=== PATIENT | female | born 1945 | race Caucasian/White ===

== ENCOUNTER 2017-06-22 09:59 | Outpatient (RCR) | payer MEDICARE, MEDICAID, SELFPAY | END 2017-06-22 10:00 | disposition home or self-care (01) | LOC: PT 09:59 | PROVIDERS: Family Provider Family Medicine | DX: L03.115 Cellulitis of right lower limb (principal); L03.116 Cellulitis of left lower limb; I89.0 Lymphedema, not elsewhere classified | CPT/HCPCS: 97162 ==

== ENCOUNTER → 2017-08-03 10:18 | Outpatient (CLI) | payer MEDICARE, MEDICAID, SELFPAY ==
--- NOTE | 2017-08-03 10:21 | XR_ITS ---
XR foot wt bearing LT 3V HISTORY: ITS.REASON: Foot Pain ORDERING PHYSICIAN: Mara Pickard DPM PATIENT AGE: 71 years COMPARISON: FINDINGS: There is moderate to severe hallux valgus with first metatarsophalangeal angle of 37 degrees with osteoarthritic change of the first metatarsophalangeal joint and hypertrophic changes of the distal aspect of the first metatarsal. No fracture or dislocation. No lytic or blastic change. Lateral view is somewhat rotated but does suggest pes planus. IMPRESSION: Hallux valgus with osteoarthritis and bunion formation at the distal aspect of the first MTP joint with pes planus
--- NOTE | 2017-08-03 10:21 | XR_ITS ---
XR foot wt bearing RT 3V HISTORY: ITS.REASON: Foot Pain ORDERING PHYSICIAN: Mara Pickard DPM PATIENT AGE: 71 years COMPARISON: None FINDINGS: Mild hallux varus with first metatarsophalangeal angle of 33 degrees with osteoarthritic change of the first MTP joint and mild hypertrophic change of the distal aspect of the first metatarsal. Pes planus. Hypertrophic changes are present at the dorsal aspect of the talonavicular joint. No acute fracture or dislocation. IMPRESSION: Hallux valgus with osteoarthritis and bunion formation at the first MTP. Pes planus
== END ==
PROVIDERS: PCP Family Medicine; Visit Provider Podiatrist
DX: M79.671 Pain in right foot (principal); M79.672 Pain in left foot; E11.9 Type 2 diabetes mellitus without complications
CPT/HCPCS: 73630

== ENCOUNTER → 2017-08-09 13:48 | Outpatient (REF) | payer MEDICARE, MEDICAID, SELFPAY | LOC: LAB 13:48 | DX: L97.909 Non-pressure chronic ulcer of unspecified part of unspecified lower leg with unspecified severity (principal); E11.622 Type 2 diabetes mellitus with other skin ulcer | CPT/HCPCS: 87070; 87077; 87186; 87205 ==

== ENCOUNTER → 2017-08-13 13:21 | Outpatient (CLI) | payer MEDICARE, MEDICAID, SELFPAY ==
--- NOTE | 2017-08-13 13:22 | XR_ITS ---
XR foot wt bearing LT 3V HISTORY: Left foot pain ITS.REASON: Pain ORDERING PHYSICIAN: Mara Pickard DPM PATIENT AGE: 71 years COMPARISON: 08/03/2017 FINDINGS: Moderate hallux valgus with mild osteoarthritis of the first metatarsophalangeal joint. First metatarsophalangeal angle images 34 degrees not significant change with mild lateral subluxation of the proximal phalanx of the first toe. Mild pes planus. No fracture or dislocation. No lytic or blastic change. IMPRESSION: Overall no significant change hallux valgus with pes planus
--- NOTE | 2017-08-13 13:22 | XR_ITS ---
XR ankle wt bearing RT min 3V HISTORY: ITS.REASON: Pain ORDERING PHYSICIAN: Mara Pickard DPM PATIENT AGE: 71 years Comparison: None FINDINGS: No fracture or dislocation. No lytic or blastic change. There is normal mineralization.. The joint spaces are well-preserved. No significant degenerative/arthritic changes. No erosive changes evident. IMPRESSION: Negative ankle, no acute finding
--- NOTE | 2017-08-13 13:22 | XR_ITS ---
XR ankle wt bearing LT min 3V HISTORY: ITS.REASON: Pain ORDERING PHYSICIAN: Mara Pickard DPM PATIENT AGE: 71 years Comparison: None FINDINGS: No fracture or dislocation. No lytic or blastic change. There is normal mineralization.. The joint spaces are well-preserved. No significant degenerative/arthritic changes. No erosive changes evident. Prominent overlying soft tissues IMPRESSION: Negative ankle, no acute finding
--- NOTE | 2017-08-13 13:22 | XR_ITS ---
XR foot wt bearing RT 3V HISTORY: ITS.REASON: pain ORDERING PHYSICIAN: Mara Pickard DPM PATIENT AGE: 71 years COMPARISON: 08/03/2017 FINDINGS: Overall no change hallux valgus with mild osteoarthritic change first MTP joint. There is moderate pes planus. There are osteoarthritic changes of the talonavicular joint. No fracture or dislocation.. Diffuse soft tissue swelling. IMPRESSION: Overall no change hallux valgus with pes planus and osteoarthritic change of the talonavicular joint
== END ==
PROVIDERS: Visit Provider Podiatrist
DX: M76.821 Posterior tibial tendinitis, right leg (principal); E11.9 Type 2 diabetes mellitus without complications
CPT/HCPCS: 73610; 73630

== ENCOUNTER → 2017-08-17 11:01 | Outpatient (REF) | payer MEDICARE, MEDICAID, SELFPAY | LOC: LAB 11:01 | DX: E11.9 Type 2 diabetes mellitus without complications (principal); M76.821 Posterior tibial tendinitis, right leg | CPT/HCPCS: 87070; 87077; 87186; 87205 ==

== ENCOUNTER → 2017-08-27 13:34 | Outpatient (CLI) | payer MEDICARE, MEDICAID, SELFPAY ==
[2017-08-27 14:26] LABS: Basophils % 0.3 % (0.1-2.0); Eosinophils # 0.5 K/mm3 (0.0-0.4); Hematocrit 42.2 % (37.0-47.0); Hemoglobin 12.9 g/dL (12.2-16.2); Lymphocytes # 1.7 K/mm3 (0.7-4.5); Mean Corpuscular HGB Conc 30.6 g/dL (31.8-35.4); Mean Corpuscular Hemoglobin 27.9 pg (27.0-31.2); Monocytes # 0.6 K/mm3 (0.1-1.0); Monocytes % 6.4 % (1.7-9.3); Neutrophils # 6.1 K/mm3 (1.8-7.8); Neutrophils % 69.2 % (37.0-80.0); Platelet Count 330 K/mm3 (142-424); Red Blood Count 4.64 M/mm3 (4.20-5.40); Red Cell Distribution Width 15.8 % (11.5-17.5); White Blood Count 8.9 K/mm3 (4.8-10.8)
[2017-08-27 14:58] LABS: Hemoglobin A1C 6.2 % (0.0-7.0)
[2017-08-27 15:25] LABS: Alanine Aminotransferase 23 U/L (12-78); Albumin Level 3.6 gm/dL (3.4-5.0); Alkaline Phosphatase 95 U/L (46-116); Anion Gap 15.4 mEq/L (5-15); Aspartate Amino Transferase 21 U/L (15-37); Bilirubin,Total 0.3 mg/dL (0.2-1.0); Blood Urea Nitrogen 14 mg/dL (7-18); Calcium 9.2 mg/dL (8.5-10.1); Carbon Dioxide 26 mmol/L (21.0-32.0); Chloride 104 mmol/L (98-107); Chol/HDL Ratio 3.8 (1-3.5); Cholesterol 162 mg/dL (140-200); Creatinine,Serum 1.27 mg/dL (0.55-1.02); Estimated Glomerular Filt Rate 41 ml/min (>60); GFR (African American) 50 ML/MIN (>60); Globulin 3.7 gm/dl (1.3-3.2); Glucose 138 mg/dL (74-106); HDL Cholesterol 43 mg/dL (29-89); LDL Cholesterol 92 mg/dL (0-130); Potassium 4.4 mmoL/L (3.5-5.1); Sodium 141 mmol/L (136-145); Thyroid Stimulating Hormone 3.87 uIU/ml (0.358-3.740); Total Protein,Serum 7.3 gm/dL (6.4-8.2); Triglycerides 134 mg/dL (30-200); VLDL Cholesterol 27 mg/dL (0-40)
[2017-08-28 09:18] LABS: Creatinine, Urine 25.2 mg/dL (Not Estab.); Microalbumin, Urine <3.0 ug/mL (Not Estab.)
[2017-08-28 09:19] LABS: Vitamin D 25 Hydroxy 42.7 ng/mL (30.0-100.0)
== END ==
PROVIDERS: Visit Provider Nurse Practitioner Family
DX: E11.9 Type 2 diabetes mellitus without complications (principal); R53.83 Other fatigue; Z79.899 Other long term (current) drug therapy
CPT/HCPCS: 36415; 80053; 80061; 82043; 82570; 82652; 83036; 84443; 85025

== ENCOUNTER → 2017-11-06 12:14 | Outpatient (REF) | payer MEDICARE, MEDICAID, SELFPAY | LOC: LAB 12:14 | PROVIDERS: Visit Provider Nurse Practitioner Family | DX: L08.9 Local infection of the skin and subcutaneous tissue, unspecified (principal) | CPT/HCPCS: 87070; 87077; 87186; 87205 ==

== ENCOUNTER 2017-11-29 11:00 | Outpatient (RCR) | payer MEDICARE, MEDICAID, SELFPAY | END 2017-11-29 11:01 | disposition home or self-care (01) | LOC: PT 11:00 | PROVIDERS: Family Provider Family Medicine; PCP Family Medicine; Visit Provider Internal Medicine | DX: I89.0 Lymphedema, not elsewhere classified (principal) | CPT/HCPCS: 29580; 97140; 97163; 97164; 97597; 97760 ==

== ENCOUNTER → 2018-01-17 09:43 | Outpatient (POV) | payer MEDICARE, MEDICAID, SELFPAY | PROVIDERS: Visit Provider Podiatrist | DX: Z00.00 Encounter for general adult medical examination without abnormal findings (principal) ==

== ENCOUNTER → 2018-01-29 17:35 | Outpatient (CLI) | payer MEDICARE, MEDICAID, SELFPAY ==
[2018-01-29 18:51] LABS: Basophils % 0.4 % (0.1-2.0); Eosinophils # 0.3 K/mm3 (0.0-0.4); Eosinophils % 3.4 % (0.1-12.0); Hematocrit 43.3 % (37.0-47.0); Hemoglobin 13.9 g/dL (12.2-16.2); Lymphocytes # 1.7 K/mm3 (0.7-4.5); Lymphocytes % 20.9 % (10-50); Mean Corpuscular Hemoglobin 29.5 pg (27.0-31.2); Mean Corpuscular Volume 92.2 fl (81-99); Mean Platelet Volume 8.3 fl (7.4-10.4); Monocytes # 0.5 K/mm3 (0.1-1.0); Monocytes % 6.6 % (1.7-9.3); Neutrophils # 5.5 K/mm3 (1.8-7.8); Neutrophils % 68.7 % (37.0-80.0); Platelet Count 304 K/mm3 (142-424); Red Cell Distribution Width 15.3 % (11.5-17.5)
[2018-01-29 19:19] LABS: Alanine Aminotransferase 24 U/L (12-78); Albumin Level 3.9 gm/dL (3.4-5.0); Alkaline Phosphatase 110 U/L (46-116); Anion Gap 17.4 mEq/L (5-15); Aspartate Amino Transferase 13 U/L (15-37); Bilirubin,Total 0.2 mg/dL (0.2-1.0); Blood Urea Nitrogen 15 mg/dL (7-18); Calcium 9.5 mg/dL (8.5-10.1); Carbon Dioxide 24 mmol/L (21.0-32.0); Chloride 102 mmol/L (98-107); Creatinine,Serum 1.18 mg/dL (0.55-1.02); Estimated Glomerular Filt Rate 45 ml/min (>60); Free T4 (Free Thyroxine) 0.94 ng/dl (0.76-1.46); GFR (African American) 54 ML/MIN (>60); Globulin 4.1 gm/dl (1.3-3.2); Glucose 114 mg/dL (74-106); Potassium 4.4 mmoL/L (3.5-5.1); Sodium 139 mmol/L (136-145); Thyroid Stimulating Hormone 2.34 uIU/ml (0.358-3.740)
[2018-01-29 20:05] LABS: Hemoglobin A1C 6.5 % (0.0-7.0)
== END ==
PROVIDERS: Visit Provider Emergency Medicine
DX: I89.0 Lymphedema, not elsewhere classified (principal); E11.9 Type 2 diabetes mellitus without complications
CPT/HCPCS: 80053; 83036; 84439; 84443; 85025

== ENCOUNTER → 2018-03-12 14:11 | Outpatient (CLI) | payer MEDICARE, MEDICAID, SELFPAY | PROVIDERS: Visit Provider Nurse Practitioner Family | DX: N39.0 Urinary tract infection, site not specified (principal) | CPT/HCPCS: 87086 ==

== ENCOUNTER → 2018-03-29 16:56 | Outpatient (CLI) | payer MEDICARE, MEDICAID, SELFPAY ==
[2018-03-29 18:35] LABS: Basophils % 0.4 % (0.1-2.0); Eosinophils # 0.2 K/mm3 (0.0-0.4); Eosinophils % 2.7 % (0.1-12.0); Hematocrit 40.7 % (37.0-47.0); Hemoglobin 12.8 g/dL (12.2-16.2); Lymphocytes % 24.8 % (10-50); Mean Corpuscular HGB Conc 31.3 g/dL (31.8-35.4); Mean Corpuscular Hemoglobin 29.6 pg (27.0-31.2); Mean Corpuscular Volume 94.6 fl (81-99); Mean Platelet Volume 8.5 fl (7.4-10.4); Monocytes # 0.5 K/mm3 (0.1-1.0); Monocytes % 6.4 % (1.7-9.3); Neutrophils # 5.1 K/mm3 (1.8-7.8); Neutrophils % 65.6 % (37.0-80.0); Platelet Count 255 K/mm3 (142-424); Red Blood Count 4.31 M/mm3 (4.20-5.40); Red Cell Distribution Width 14.7 % (11.5-17.5); White Blood Count 7.8 K/mm3 (4.8-10.8)
[2018-03-29 19:03] LABS: Alanine Aminotransferase 23 U/L (12-78); Albumin Level 3.5 gm/dL (3.4-5.0); Albumin/Globulin Ratio 0.9 (1.1-1.8); Alkaline Phosphatase 98 U/L (46-116); Anion Gap 14.4 mEq/L (5-15); Aspartate Amino Transferase 16 U/L (15-37); Bilirubin,Total 0.3 mg/dL (0.2-1.0); Blood Urea Nitrogen 18 mg/dL (7-18); Calcium 9.4 mg/dL (8.5-10.1); Carbon Dioxide 25 mmol/L (21.0-32.0); Chloride 104 mmol/L (98-107); Chol/HDL Ratio 3.5 (1-3.5); Cholesterol 176 mg/dL (140-200); Creatinine,Serum 1.19 mg/dL (0.55-1.02); Estimated Glomerular Filt Rate 44 ml/min (>60); Free T4 (Free Thyroxine) 0.95 ng/dl (0.76-1.46); GFR (African American) 54 ML/MIN (>60); Globulin 3.7 gm/dl (1.3-3.2); Glucose 132 mg/dL (74-106); HDL Cholesterol 51 mg/dL (29-89); LDL Cholesterol 101 mg/dL (0-130); Potassium 4.4 mmoL/L (3.5-5.1); Sodium 139 mmol/L (136-145); Thyroid Stimulating Hormone 3.39 uIU/ml (0.358-3.740); Total Protein,Serum 7.2 gm/dL (6.4-8.2); Triglycerides 119 mg/dL (30-200); VLDL Cholesterol 24 mg/dL (0-40)
[2018-03-29 19:05] LABS: Hemoglobin A1C 6.5 % (0.0-7.0)
== END ==
LOC: LAB 16:58 → LAB.DROPOF 17:51
PROVIDERS: PCP Emergency Medicine; Visit Provider Emergency Medicine
DX: E11.9 Type 2 diabetes mellitus without complications (principal); Z79.84 Long term (current) use of oral hypoglycemic drugs
CPT/HCPCS: 80053; 80061; 83036; 84439; 84443; 85025

== ENCOUNTER → 2018-04-04 11:16 | Outpatient (CLI) | payer MEDICARE, MEDICAID, SELFPAY ==
[2018-04-04 11:22] LABS: Microscopic, Urine URINE MICROSCOPIC (MICROSCOPIC)
[2018-04-04 12:05] LABS: Basophils % 0.4 % (0.1-2.0); Eosinophils # 0.3 K/mm3 (0.0-0.4); Eosinophils % 2.9 % (0.1-12.0); Hematocrit 41.8 % (37.0-47.0); Hemoglobin 13.3 g/dL (12.2-16.2); Lymphocytes # 2.2 K/mm3 (0.7-4.5); Lymphocytes % 23.9 % (10-50); Mean Corpuscular HGB Conc 31.9 g/dL (31.8-35.4); Mean Corpuscular Hemoglobin 29.5 pg (27.0-31.2); Mean Corpuscular Volume 92.5 fl (81-99); Monocytes # 0.6 K/mm3 (0.1-1.0); Monocytes % 6.7 % (1.7-9.3); Neutrophils # 6.1 K/mm3 (1.8-7.8); Neutrophils % 66.1 % (37.0-80.0); Platelet Count 259 K/mm3 (142-424); Red Blood Count 4.52 M/mm3 (4.20-5.40); Red Cell Distribution Width 14.7 % (11.5-17.5); White Blood Count 9.2 K/mm3 (4.8-10.8)
[2018-04-04 12:47] LABS: Appearance,Urine CLEAR (Clear); Bilirubin,Urine Negative (Negative); Blood, Urine Negative (Negative); Color,Urine YELLOW (Yellow); Glucose,Urine (UA) Negative (Negative); Ketones,Urine Negative (Negative); Leukocyte Esterase,Urine 1+ (Negative); Nitrate,Urine Negative (Negative); Protein,Urine Negative (Negative); Urobilinogen,Urine 0.2 EU/dl (0.2)
[2018-04-04 13:01] LABS: Creatinine,Urine Random 45 mg/dL (20-320)
[2018-04-04 13:15] LABS: Bacteria,Urine Trace /lpf
[2018-04-04 13:25] LABS: Total Protein,Urine Random 5.3 mg/dL (0.0-11.9)
[2018-04-04 13:41] LABS: Albumin Level 3.7 gm/dL (3.4-5.0); Anion Gap 15.3 mEq/L (5-15); Blood Urea Nitrogen 13 mg/dL (7-18); Calcium 9.4 mg/dL (8.5-10.1); Carbon Dioxide 28 mmol/L (21.0-32.0); Chloride 101 mmol/L (98-107); Creatinine,Serum 1.26 mg/dL (0.55-1.02); Estimated Glomerular Filt Rate 42 ml/min (>60); GFR (African American) 50 ML/MIN (>60); Glucose 132 mg/dL (74-106); Phosphorous 3.5 mg/dL (2.4-4.9); Potassium 4.3 mmoL/L (3.5-5.1); Sodium 140 mmol/L (136-145)
[2018-04-06 11:59] LABS: Vitamin D 25 Hydroxy 57.6 ng/mL (30.0-100.0)
[2018-04-06 12:00] LABS: Parathyroid Hormone Intact 84 pg/mL (15-65)
== END ==
PROVIDERS: Visit Provider Internal Medicine Nephrology
DX: N18.3 Chronic kidney disease, stage 3 (moderate) (principal); R82.90 Unspecified abnormal findings in urine
CPT/HCPCS: 36415; 80069; 81001; 82570; 82652; 83970; 84155; 85025; 87086; 87088; 87186

== ENCOUNTER → 2018-04-11 15:38 | Outpatient (POV) | payer MEDICARE, MEDICAID, SELFPAY | PROVIDERS: Visit Provider Internal Medicine Nephrology | DX: Z00.00 Encounter for general adult medical examination without abnormal findings (principal) ==

== ENCOUNTER → 2018-04-30 14:42 | Outpatient (CLI) | payer MEDICARE, MEDICAID, SELFPAY | PROVIDERS: Visit Provider Nurse Practitioner Family | DX: R30.0 Dysuria (principal) | CPT/HCPCS: 87086 ==

== ENCOUNTER → 2018-05-20 11:43 | Outpatient (CLI) | payer MEDICARE, SELFPAY ==
--- NOTE | 2018-05-20 11:48 | XR_ITS ---
EXAM: XR thoracic spine 3V HISTORY: Back pain ITS.REASON: pain Comparison: None FINDINGS: There is mild lower thoracic curvature convex left with mild multilevel degenerative disc disease in the mid and lower thoracic spine. No acute fracture or dislocation. No lytic or blastic change. IMPRESSION: Mild degenerative changes, no acute finding
--- NOTE | 2018-05-20 11:48 | XR_ITS ---
EXAM: XR lumbar spine min 4V HISTORY: Back pain, low back pain ITS.REASON: pain ORDERING PHYSICIAN: Jodi Salazar PATIENT AGE: 72 years COMPARISON: None FINDINGS: There is mild lumbar curvature convex right with mild degenerative disc disease from T12 to L2 and L3-S1 there is mild retrolisthesis of L2 on L3 x 5 mm. No acute fracture or dislocation. No lytic or blastic change. The SI joints have an unremarkable appearance. There are surgical clips in right upper quadrant with a mild amount of colonic feces noted. IMPRESSION: Lumbar spondylosis with multilevel degenerative disc disease and mild scoliosis
== END ==
PROVIDERS: PCP Emergency Medicine; Visit Provider Nurse Practitioner Family
DX: M54.9 Dorsalgia, unspecified (principal); M54.6 Pain in thoracic spine; M54.5 Low back pain
CPT/HCPCS: 72072; 72110

== ENCOUNTER → 2018-06-11 12:00 | Outpatient (CLI) | payer MEDICARE, SELFPAY ==
--- NOTE | 2018-06-11 12:05 | XR_ITS ---
XR foot wt bearing LT 3V HISTORY: ITS.REASON: pain ORDERING PHYSICIAN: Mara Pickard DPM PATIENT AGE: 72 years COMPARISON: None FINDINGS: There is [id number] hallux valgus with mild osteoarthritis of the first MTP joint and bunion formation at the distal aspect of the first metatarsal. Pes planus also noted. No fracture or dislocation. No lytic or blastic change. IMPRESSION: Hallux valgus with pes planus
--- NOTE | 2018-06-11 12:05 | XR_ITS ---
XR foot wt bearing RT 3V HISTORY: ITS.REASON: pain ORDERING PHYSICIAN: Mara Pickard DPM PATIENT AGE: 72 years COMPARISON: None FINDINGS: No fracture or dislocation. No lytic or blastic change. There is normal mineralization.. Prominent dorsal osteophytes are present at the talonavicular joint with mild pes planus. No fracture or dislocation. There is a small calcaneal spur measuring 8 mm. IMPRESSION: Osteoarthritic changes at the talonavicular joint with mild pes planus
== END ==
PROVIDERS: PCP Emergency Medicine; Visit Provider Podiatrist
DX: M79.672 Pain in left foot (principal); M79.671 Pain in right foot
CPT/HCPCS: 73630

== ENCOUNTER → 2018-07-12 10:54 | Outpatient (CLI) | payer MEDICARE, MEDICAID, SELFPAY ==
--- NOTE | 2018-07-12 10:55 | CA_ITS ---
PROCEDURE: 2-D M-mode and color Doppler study INDICATIONS FOR THE TEST: Chest pain COPD Heart Murmur Tobacco Smoking Palpitations+ Fatigue+ Syncope Edema Hypertension+Diabetes Mellitus+ Rheumatic Fever SOB+ROTHMAN Obesity+Hyperlipidemia Family History HD+ Additional History Left leg numbness, ABN EKG PATIENT INFORMATION HEIGHT: 60 WEIGHT: 256 GENDER: Female B/P: 139/76 2-D/M-MODE INTERPRETATION: 2-D MEASUREMENTS OBSERVED VALUES IN CMS Right Ventricular Dimension (RVDd) 2.4 Interventricular Septum (Thickness)(IVsd) 0.9 Left Ventricular Internal Dimensions(LVIDd) 4.6 Left Ventricular Posterior Wall (Thickness)(LVPWd) 0.9 Aortic Root 2.8 Aortic Cusp Separation 2.0 Left Atrial Dimensions (LAD) 3.6 2D 1. Left atrium is mildly enlarged, left ventricle is normal size, mild concentric left ventricular hypertrophy, visually estimated ejection fraction 55% with no regional wall motion abnormality. 2. The right atrium and right ventricle are relatively normal size and function. 3. The aortic valve is minimally thickened and fibrosed. 4. The mitral and tricuspid valvular grossly normal. 5. Pulmonic valve is poorly visualized. 6. No significant pericardial effusion noted. DOPPLER INTERROGATION: Doppler interrogation of the aortic, mitral and tricuspid valvular presence of mild mitral and tricuspid regurgitation, tricuspid regurgitation jet velocity is inadequate for calculation of the right ventricular systolic pressure, grade 1 diastolic dysfunction seen without tissue Doppler evidence of raised left atrial pressure. CONCLUSION: 1. Mildly enlarged left atrium, normal left ventricular size, mild concentric left ventricular hypertrophy, visually estimated ejection fraction 55% with no regional wall motion abnormality, grade 1 diastolic dysfunction seen without tissue Doppler evidence of raised left atrial pressure. 2. Mild mitral and tricuspid regurgitation 3. No significant pericardial effusion noted.
== END ==
PROVIDERS: PCP Emergency Medicine; Visit Provider Urology
DX: E11.9 Type 2 diabetes mellitus without complications (principal); E66.01 Morbid (severe) obesity due to excess calories; E78.2 Mixed hyperlipidemia; I10 Essential (primary) hypertension; R06.00 Dyspnea, unspecified; R06.01 Orthopnea; R06.81 Apnea, not elsewhere classified; R06.83 Snoring; R53.83 Other fatigue; R60.0 Localized edema; R94.31 Abnormal electrocardiogram [ECG] [EKG]; Z68.43 Body mass index [BMI] 50.0-59.9, adult; Z79.84 Long term (current) use of oral hypoglycemic drugs
CPT/HCPCS: 93306

== ENCOUNTER → 2018-08-26 10:16 | Outpatient (CLI) | payer MEDICARE, MEDICAID, SELFPAY ==
--- NOTE | 2018-08-26 10:29 | MM_ITS ---
MM Dig screening mamm BI w/CAD CAD Screening COMPARISON: Digital mammograms with CAD 06/01/2016 INDICATION: There is a history of breast cancer patient's sister diagnosed after menopause in patient's niece diagnosed before menopause TECHNIQUE: Standard CC and MLO images were obtained. R2 CAD reviewed. FINDINGS: Moderate diffuse fibroglandular densities are seen in the subareolar regions and central portions of both breasts. There are multiple scattered benign-appearing microcalcifications in each breast. There is arterial calcification noted bilaterally as well. There is no new or suspicious lesion in either breast and there are no suspicious microcalcifications. IMPRESSION: Stable exam with no suspicious lesion seen BI-RADS Category: 2 Benign Finding(s) RECOMMENDED FOLLOW-UP: 1YR - 1 YEAR FOLLOW-UP (A letter has been sent to the patient regarding results of the study.)
== END ==
PROVIDERS: PCP Emergency Medicine; Visit Provider Emergency Medicine
DX: Z12.31 Encounter for screening mammogram for malignant neoplasm of breast (principal)
CPT/HCPCS: 77067

== ENCOUNTER → 2018-10-07 13:54 | Outpatient (CLI) | payer MEDICARE, MEDICAID, SELFPAY ==
[2018-10-07 15:47] LABS: Amphetamine/Metha Screen,Urine Negative ng/mL (<1000); Barbiturates Screen,Urine Negative ng/mL (<200); Benzodiazepines Screen,Urine Negative ng/mL (<200); Cannabinoid Screen,Urine Negative ng/mL (<50); Cocaine Screen,Urine Negative ng/mL (<300); Methadone Screen,Urine Negative ng/mL (<300); Opiate Screen,Urine Positive ng/mL (<300); Phencyclidine Screen,Urine Negative ng/mL (<25)
== END ==
PROVIDERS: Visit Provider Emergency Medicine
DX: M51.36 Other intervertebral disc degeneration, lumbar region (principal)
CPT/HCPCS: 80305

== ENCOUNTER → 2018-10-14 08:13 | Outpatient (CLI) | payer MEDICARE, MEDICAID, SELFPAY ==
--- NOTE | 2018-10-14 08:19 | US_ITS ---
US abdomen complete HISTORY: Abdominal pain ITS.REASON: stomach pain ORDERING PHYSICIAN: Fito Arambula MD PATIENT AGE: 72 years COMPARISON: None FINDINGS: PANCREAS:Unremarkable. No obvious mass or abnormal fluid collection. No ductal dilatation LIVER:Fatty liver. No liver lesions demonstrated. Study is somewhat limited secondary to patient's body habitus. There is appropriate direction of blood flow within a nondilated portal vein. Common bile duct is prominent at 8 mm and could be related to physiologic changes from prior cholecystectomy. RIGHT KIDNEY:Unremarkable. Normal size and echogenicity. No hydronephrosis LEFT KIDNEY:Unremarkable. No hydronephrosis. Normal size and echogenicity. GALLBLADDER:Prior cholecystectomy AORTA:No evidence of aneurysmal dilatation. SPLEEN:Unremarkable. Normal size and echogenicity ASCITES:None demonstrated. IMPRESSION: 1. Status post cholecystectomy with mild prominence of the common bile duct at 8 mm. 2. Fatty liver 3. Somewhat limited study secondary to patient's body habitus
== END ==
PROVIDERS: PCP Emergency Medicine; Visit Provider Emergency Medicine
DX: R10.9 Unspecified abdominal pain (principal)
CPT/HCPCS: 76700

== ENCOUNTER → 2018-11-20 12:41 | Outpatient (CLI) | payer MEDICARE, MEDICAID, SELFPAY ==
--- NOTE | 2018-11-20 12:43 | MR_ITS ---
PROCEDURE: MR LUMBAR SPINE WO CON CLINICAL INDICATION: back pain Low back pain, bilateral leg pain COMPARISON: [id number] XR lumbar spine min 4V from 05/20/2018 [id number] XR thoracic spine 3V from 05/20/2018 TECHNIQUE: Standard multiplanar multiecho sequences are performed without contrast. 3-D MIP and myelographic images are also rendered and reviewed FINDINGS: Review is performed of the previous thoracic spine and lumbar spine films. 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 The there is mild lumbar scoliosis convex right with a counter clockwise rotary component with multilevel degenerative disc disease. The spinal cord ends at the L1 level. T10-T11: Degenerate disc disease. T11-T12: Mild degenerative changes. T12-L1: Mild retrolisthesis of T12 of 2-3 mm with mild disc desiccation. L1-L2: Mild degenerative disc disease with minimal bulging disc. There is a small left paracentral disc protrusion causing left lateral recess and foraminal narrowing. There is concentric bulging of the disc in the left foraminal and lateral region with moderate to severe left-sided foraminal narrowing. There is minimal retrolisthesis of L1 of 2 mm. Facet and ligamentum hypertrophy are present contributing to the foraminal narrowing L2-L3: Degenerate disc disease with bulging disc along with facet ligamentum hypertrophy with moderate to severe left foraminal narrowing and moderate right foraminal narrowing. L3-L4: Degenerate disc disease with bulging disc with facet and ligamentum hypertrophy with moderate to severe right lateral recess and moderate left lateral recess narrowing along with moderate to severe right foraminal narrowing and moderate left foraminal narrowing. Borderline canal stenosis. L4-5: Degenerate disc disease with bulging disc with moderate facet ligamentum hypertrophy with severe right foraminal narrowing and moderate left foraminal narrowing. Borderline canal stenosis. L5-S1: Unremarkable No acute fracture. No extruded herniated discs. IMPRESSION: Abnormal MRI of the lumbar spine with dextro scoliosis with rotary component with multilevel lumbar spondylosis with bulging disc, degenerative disc disease, facet and ligamentum hypertrophy with varying levels of foraminal and lateral recess narrowing as well as borderline canal stenosis. Please see above for detailed description at each level Dictated by: Jonny Mcgowan MD 11/22/2018 09:29 Electronically signed by Jonny Mcgowan MD in [place] 11/22/2018 09:29
== END ==
PROVIDERS: PCP Emergency Medicine; Visit Provider Emergency Medicine
DX: M54.9 Dorsalgia, unspecified (principal); M54.5 Low back pain
CPT/HCPCS: 72148; 76376

== ENCOUNTER 2018-11-29 10:00 | Outpatient (RCR) | payer MEDICARE, MEDICAID, SELFPAY ==
--- NOTE | 2018-11-19 09:28 | HMH.PTOPWND ---
Rehab Outpt Wound Evaluation Rehab OP Wound Evaluation Start: 11/19/18 09:23 Freq: Status: Active Protocol: Document 11/19/18 09:23 MELITON (Rec: 11/19/18 09:28 PHORULI [id number]) Electronically Signed By Ang Nichols, PT 11/19/18 09:23 Subjective/History History History Pt is 72 yowf who presents with B LE edema for years, this episode increased x 2-3 mos worse in the left LE. Pt is well known to this clinic as she has significant hx of CVI with edema in ele LE. She currently c/o no pain, but B LE tenderness to palpation. SHe has one open sore currently on the anterior left mohr. She has hx of HTN, DM- II, CVI, HL, CKD. She reports she has not been wearing her compression garments at home. Lymphedema Eval Classification of Lymphedema Secondary Lymphedema Yes Stemmer's sign Stemmer's Sign no Stage of Lymphedema Lymphedema stages Stage II (Pitting edema, increased fibrosis w/ decreased pitting) Skin Changes Dry Skin Yes Skin Folds Yes Hyperkeratosis Yes Papillomatosis Yes Redness Yes Blisters Yes Wounds Yes Brittle Uneven Nails Yes Discoloration of Skin Yes Other Changes Yes Affected Extremities Areas Affected by Lymphedema/Edema Right Lower Extremity,Left Lower Extremity Manual Lymphatic Drainage Treatment Area MLD Treatment Area Right Lower Extremity,Left Lower Extremity Wound Problems/Impairments Impairments Problems/Impairmments Palpation Tenderness,Impaired Gait Pattern,Impaired Walking, Impaired Standing,Impaired Recreational Activities, Increased Edema,Lymphedema Present,Wound Care Needs, Subjective C/O Pain,Impaired Self Care/Self Management Prognosis Rehab Potential Fair Clinical Impression Consistent with Diagnosis Yes Short Term Goals Number of Weeks 4 Decreased Palpation Tenderness Yes: to min Patient to Understand Lymphedema Yes Blas
== END 2018-11-29 10:05 | disposition home or self-care (01) ==
LOC: PT 10:00
PROVIDERS: PCP Emergency Medicine; Visit Provider Emergency Medicine
DX: I89.0 Lymphedema, not elsewhere classified (principal); R60.0 Localized edema
CPT/HCPCS: 97140; 97162

== ENCOUNTER → 2018-11-29 11:03 | Outpatient (CLI) | payer MEDICARE, MEDICAID, SELFPAY ==
--- NOTE | 2018-11-29 11:16 | XR_ITS ---
PROCEDURE: XR FOOT WT BEARING RT 3V CLINICAL INDICATION: pain COMPARISON: [id number] XR foot wt bearing LT 3V from 08/13/2017 [id number] XR foot wt bearing RT 3V from 08/13/2017 [id number] XR foot wt bearing LT 3V from 06/11/2018 [id number] XR foot wt bearing RT 3V from 06/11/2018 FINDINGS: Hallux valgus which is slightly worse compared to the previous exam. Osteoarthritis of the 1st metatarsophalangeal joint. Osteoarthritic changes of the talonavicular joint and calcaneocuboid joint which also appears slightly worse. Bony hypertrophic changes are present involving the medial aspect of the navicular. There is pes planus. There are bony hypertrophic changes along the dorsal aspect of the talonavicular joint. IMPRESSION: Hallux valgus with worsening osteoarthritis and slight worsening of pes planus Dictated by: Jonny Mcgowan MD 11/29/2018 16:48 Electronically signed by Jonny Mcgowan MD in [place] 11/29/2018 16:48
== END ==
PROVIDERS: PCP Emergency Medicine; Visit Provider Podiatrist
DX: M79.671 Pain in right foot (principal)
CPT/HCPCS: 73630

== ENCOUNTER → 2018-12-05 17:56 | Outpatient (CLI) | payer MEDICARE, MEDICAID, SELFPAY | PROVIDERS: Visit Provider Nurse Practitioner Family | DX: N39.0 Urinary tract infection, site not specified (principal) | CPT/HCPCS: 87086; 87088; 87186 ==

== ENCOUNTER → 2019-01-03 10:37 | Outpatient (CLI) | payer MEDICARE, MEDICAID, SELFPAY ==
[2019-01-03 10:40] LABS: Microscopic, Urine URINE MICROSCOPIC (MICROSCOPIC)
[2019-01-03 11:10] LABS: Appearance,Urine CLEAR (Clear); Bilirubin,Urine Negative (Negative); Blood, Urine TRACE-I (Negative); Color,Urine YELLOW (Yellow); Glucose,Urine (UA) Negative (Negative); Ketones,Urine Negative (Negative); Leukocyte Esterase,Urine 2+ (Negative); Nitrate,Urine Negative (Negative); Protein,Urine Negative (Negative); Specific Gravity, Urine 1.015 (1.005-1.030); Urobilinogen,Urine 0.2 EU/dl (0.2)
[2019-01-03 11:20] LABS: WBC,Urine 20-50 #/hpf (0-3)
[2019-01-03 11:21] LABS: Bacteria,Urine 3+ /lpf; Mucus,Urine 1+ /lpf
[2019-01-03 11:51] LABS: Albumin Level 3.8 gm/dL (3.4-5.0); Anion Gap 11.6 mEq/L (5-15); Blood Urea Nitrogen 16 mg/dL (7-18); Calcium 9.7 mg/dL (8.5-10.1); Carbon Dioxide 30 mmol/L (21.0-32.0); Chloride 101 mmol/L (98-107); Creatinine,Serum 1.15 mg/dL (0.55-1.02); Estimated Glomerular Filt Rate 46 ml/min (>60); GFR (African American) 56 ML/MIN (>60); Glucose 100 mg/dL (74-106); Phosphorous 3.6 mg/dL (2.4-4.9); Potassium 4.6 mmoL/L (3.5-5.1); Sodium 138 mmol/L (136-145)
[2019-01-03 14:43] LABS: Basophils # 0.1 K/mm3 (0-0.2); Basophils % 0.6 % (0.1-2.0); Eosinophils # 0.3 K/mm3 (0.0-0.4); Eosinophils % 3.9 % (0.1-12.0); Hematocrit 42.7 % (37.0-47.0); Hemoglobin 13.6 g/dL (12.2-16.2); Lymphocytes # 1.7 K/mm3 (0.7-4.5); Lymphocytes % 19.9 % (10-50); Mean Corpuscular HGB Conc 31.7 g/dL (31.8-35.4); Mean Corpuscular Hemoglobin 30.2 pg (27.0-31.2); Mean Corpuscular Volume 95.3 fl (81-99); Mean Platelet Volume 8.7 fl (7.4-10.4); Monocytes # 0.6 K/mm3 (0.1-1.0); Monocytes % 7.2 % (1.7-9.3); Neutrophils # 5.8 K/mm3 (1.8-7.8); Neutrophils % 68.5 % (37.0-80.0); Platelet Count 304 K/mm3 (142-424); Red Blood Count 4.48 M/mm3 (4.20-5.40); Red Cell Distribution Width 14.6 % (11.5-17.5); White Blood Count 8.5 K/mm3 (4.8-10.8)
[2019-01-03 16:05] LABS: Creatinine,Urine Random 112 mg/dL (20-320); Total Protein,Urine Random 26.8 mg/dL (0.0-11.9)
== END ==
PROVIDERS: Visit Provider Internal Medicine Nephrology
DX: N18.3 Chronic kidney disease, stage 3 (moderate) (principal); R82.90 Unspecified abnormal findings in urine
CPT/HCPCS: 36415; 80069; 81001; 82570; 84155; 85025; 87086

== ENCOUNTER → 2019-01-09 11:58 | Outpatient (POV) | payer MEDICARE, MEDICAID, SELFPAY | PROVIDERS: Visit Provider Internal Medicine Nephrology | DX: Z00.00 Encounter for general adult medical examination without abnormal findings (principal) ==

== ENCOUNTER → 2019-02-13 09:30 | Outpatient (CLI) | payer MEDICARE, MEDICAID, SELFPAY ==
--- NOTE | 2019-02-13 09:32 | FL_ITS ---
PROCEDURE: FL BARIUM SWALLOW CLINICAL INDICATION: dysphagia COMPARISON: No exams were available for comparison TECHNIQUE: In the upright position the patient was observed to swallow barium in both the AP and lateral view. The cervical esophagus was examined under fluoroscopy with images obtained. The patient was then placed prone in the right anterior oblique position and was observed to swallow barium with Valsalva technique . FLUOROSCOPY TIME : 51 seconds FINDINGS: There was no evidence of aspiration. There was normal peristalsis. No filling defects or mucosal abnormalities. No masses or strictures. No hiatal hernia. IMPRESSION: Negative barium swallow. Dictated by: Jonny Mcgowan MD 02/13/2019 16:17 Electronically signed by Jonny Mcgowan MD in [place] 02/13/2019 16:17
== END ==
PROVIDERS: PCP Emergency Medicine; Visit Provider Emergency Medicine
DX: R13.10 Dysphagia, unspecified (principal)
CPT/HCPCS: 74220

== ENCOUNTER → 2019-02-24 13:36 | Outpatient (CLI) | payer MEDICARE, MEDICAID, SELFPAY ==
[2019-02-24 14:46] LABS: Amphetamine/Metha Screen,Urine Negative ng/mL (<1000); Barbiturates Screen,Urine Negative ng/mL (<200); Benzodiazepines Screen,Urine Negative ng/mL (<200); Cannabinoid Screen,Urine Negative ng/mL (<50); Cocaine Screen,Urine Negative ng/mL (<300); Methadone Screen,Urine Negative ng/mL (<300); Opiate Screen,Urine Positive ng/mL (<300); Phencyclidine Screen,Urine Negative ng/mL (<25)
== END ==
PROVIDERS: Visit Provider Emergency Medicine
DX: M54.16 Radiculopathy, lumbar region (principal)
CPT/HCPCS: 80305

== ENCOUNTER → 2019-04-25 14:38 | Outpatient (CLI) | payer MEDICARE, MEDICAID, SELFPAY ==
[2019-04-25 20:00] LABS: Amphetamine/Metha Screen,Urine Negative ng/ml (<1000)
[2019-04-25 20:01] LABS: Barbiturates Screen,Urine Negative ng/ml (<200)
[2019-04-25 20:02] LABS: Benzodiazepines Screen,Urine Negative ng/ml (<200); Cannabinoid Screen,Urine Negative ng/ml (<50)
[2019-04-25 20:03] LABS: Cocaine Screen,Urine Negative ng/ml (<300)
[2019-04-25 20:04] LABS: Methadone Screen,Urine Negative ng/ml (<300); Phencyclidine Screen,Urine Negative ng/ml (<25)
[2019-04-25 20:06] LABS: Opiate Screen,Urine Negative ng/ml (<300)
== END ==
PROVIDERS: Visit Provider Emergency Medicine
DX: M54.16 Radiculopathy, lumbar region (principal)
CPT/HCPCS: 80305

== ENCOUNTER → 2019-08-18 15:41 | Outpatient (CLI) | payer MEDICARE, MEDICAID, SELFPAY ==
[2019-08-18 16:01] LABS: Basophils % 0.3 % (0.1-2.0); Eosinophils # 0.3 K/mm3 (0.0-0.4); Eosinophils % 3.4 % (0.1-12.0); Hematocrit 40.7 % (37.0-47.0); Hemoglobin 13.1 g/dL (12.2-16.2); Lymphocytes # 1.8 K/mm3 (0.7-4.5); Lymphocytes % 21.1 % (10-50); Mean Corpuscular HGB Conc 32.2 g/dL (31.8-35.4); Mean Corpuscular Hemoglobin 29.4 pg (27.0-31.2); Mean Corpuscular Volume 91.1 fl (81-99); Mean Platelet Volume 8.6 fl (7.4-10.4); Monocytes # 0.6 K/mm3 (0.1-1.0); Monocytes % 6.9 % (1.7-9.3); Neutrophils # 5.9 K/mm3 (1.8-7.8); Neutrophils % 68.3 % (37.0-80.0); Platelet Count 291 K/mm3 (142-424); Red Blood Count 4.47 M/mm3 (4.20-5.40); Red Cell Distribution Width 14.5 % (11.5-17.5); White Blood Count 8.7 K/mm3 (4.8-10.8)
[2019-08-18 16:07] LABS: Chloride 102 mmol/L (98-107)
[2019-08-18 16:08] LABS: Potassium 4.5 mmoL/L (3.5-5.1); Sodium 137 mmol/L (136-145)
[2019-08-18 16:10] LABS: Alanine Aminotransferase 25 U/L (12-78); Alkaline Phosphatase 113 U/L (38-126); Aspartate Amino Transferase 28 U/L (14-36); Bilirubin,Total 0.5 mg/dl (0.2-1.3); Blood Urea Nitrogen 24 mg/dl (7-17); Estimated Glomerular Filt Rate 61 ml/min (>60); GFR (African American) 74 ML/MIN (>60)
[2019-08-18 16:11] LABS: Albumin Level 4.4 g/dl (3.5-5.0); Albumin/Globulin Ratio 1.3 (1.1-1.8); Anion Gap 14.5 mEq/L (5-15); Calcium 9.8 mg/dl (8.4-10.2); Carbon Dioxide 25 mmol/L (22.0-30.0); Chol/HDL Ratio 5.2 (1-3.5); Cholesterol 233 mg/dl (140-200); Globulin 3.5 g/dL (1.3-3.2); Glucose 107 mg/dl (74-100); HDL Cholesterol 45 mg/dl (40-60); Total Protein,Serum 7.9 g/dl (6.3-8.2); Triglycerides 205 mg/dl (30-150); VLDL Cholesterol 41 mg/dL (0-40)
[2019-08-18 16:22] LABS: Direct LDL Cholesterol 157.29 mg/dL (100-129)
[2019-08-18 16:28] LABS: Free T4 (Free Thyroxine) 1.31 ng/dl (0.78-2.19)
[2019-08-18 16:41] LABS: Thyroid Stimulating Hormone 2.85 uIU/mL (0.465-4.68)
[2019-08-18 17:09] LABS: 25-OH Vitamin D, Total 54.4 ng/mL (30-100)
[2019-08-18 18:51] LABS: Creatinine,Urine Random 118 mg/dL (Not Estab.)
[2019-08-18 19:33] LABS: Hemoglobin A1C 6.6 % (4.0-6.0)
[2019-08-19 10:18] LABS: Microalbumin/Creatinine Ratio 26.6
== END ==
PROVIDERS: Visit Provider Emergency Medicine
DX: E11.40 Type 2 diabetes mellitus with diabetic neuropathy, unspecified (principal); E55.9 Vitamin D deficiency, unspecified; E11.9 Type 2 diabetes mellitus without complications
CPT/HCPCS: 80053; 80061; 82043; 82306; 82570; 83036; 84439; 84443; 85025

== ENCOUNTER → 2019-09-01 10:01 | Outpatient (CLI) | payer MEDICARE, MEDICAID, SELFPAY ==
--- NOTE | 2019-09-01 10:01 | MM_ITS ---
PROCEDURE: MM DIG SCREENING MAMM BI W/CAD Digital Breast Tomosynthesis Included CLINICAL INDICATION: screening There is a history of breast cancer in the patient's sister, maternal aunt and niece COMPARISON: [id number] DIG MAMM-DX UNI ADD VIEWS-LT from 12/08/2014 DMSB DIG MAMM-SCREEN ALEX W/CAD from 06/01/2016 DIG MAMM-SCREEN ALEX from 08/26/2018 TECHNIQUE: Standard CC and MLO images and 3D Tomosynthesis was obtained. R2 CAD reviewed. FINDINGS: Moderate scattered fibroglandular densities are seen in both breast primarily in the subareolar regions. There is arterial calcification in each breast. There are scattered benign appear microcalcifications in each breast. There are low-lying nodes near the axillary tail left breast. There are tiny benign-appearing nodular densities near the axillary tail of each breast likely microcysts. There is no suspicious lesion and no suspicious microcalcifications. IMPRESSION: Fibrofatty parenchyma with no suspicious lesions seen BI-RAD Category: 2 Benign Finding(s) FOLLOW-UP: 1YR 1 Year Follow-up (A letter has been sent to the patient regarding results of the study.) Dictated by: Dr. Cornell Pichardo MD 09/03/2019 14:[address] Cornell Pichardo MD in [place] 09/03/2019 14:06
== END ==
PROVIDERS: PCP Emergency Medicine; Visit Provider Emergency Medicine
DX: Z12.31 Encounter for screening mammogram for malignant neoplasm of breast (principal)
CPT/HCPCS: 77063; 77067

== ENCOUNTER → 2019-11-17 15:29 | Outpatient (CLI) | payer MEDICARE, MEDICAID, SELFPAY ==
[2019-11-17 16:46] LABS: Hemoglobin A1C 7.1 % (4.0-6.0)
== END ==
PROVIDERS: Visit Provider Physician Assistant
DX: E11.9 Type 2 diabetes mellitus without complications (principal)
CPT/HCPCS: 83036

== ENCOUNTER → 2020-01-21 14:09 | Outpatient (CLI) | payer MEDICARE, MEDICAID, SELFPAY | PROVIDERS: Visit Provider Emergency Medicine | DX: N39.0 Urinary tract infection, site not specified (principal) | CPT/HCPCS: 87086; 87088; 87186 ==

== ENCOUNTER 2020-03-16 20:03 | Inpatient (IN) | payer MEDICARE, MEDICAID, SELFPAY ==
[2020-03-16] VITALS (8 sets, daily range): BP systolic 89–112; BP diastolic 41–48; PULSE 83–91; RESP 21–29; TEMP 37.8–39.8; O2SAT 84–98; BMI 48.8
--- NOTE | 2020-03-16 20:27 | ECG_ITS ---
APPROVED REPORT Exam: Resting ECG HR:85 bpm ECG Measurements Heart Rate 85 AXES LA 166 P 37 QRSd 120 QRS -72 QT 362 T 21 QTc 430 Conclusion Normal sinus rhythm Right bundle branch block Left anterior fascicular block Abnormal ECG Electronically signed by : Amilcar Mueller, 03/17/2020 06:26:13
--- NOTE | 2020-03-16 20:27 | XR_ITS ---
PROCEDURE: XR CHEST PORTABLE CLINICAL HISTORY: SOA Shortness of air, cough, fever COMPARISON: CR CXR CHEST(2 VIEWS-NOT PORTABLE) from 06/11/2013 FINDINGS: The cardiomediastinal silhouette and pulmonary vascularity are within normal limits. Patchy areas of infiltrate and/or atelectatic changes are present in the mid and lower lung zones on both sides right greater than left consistent with bilateral pneumonia. This pattern may be seen with Covid19. No acute bony abnormalities. IMPRESSION: Bilateral pneumonia and/or atelectatic change in the mid and lower lung zones right worse than Dictated by: Jonny Mcgowan MD 03/17/2020 05:41 Jonny Mcgowan MD in [place] 03/17/2020 05:41
[2020-03-16 20:28] LABS: ABG Base Excess -0.1 mmol/L (-2.4-2.3); ABG HCO3 23.4 mmhg (22.0-26.0); ABG Oxygen Saturation 92 % (90-100); ABG PH 7.48 mmol/L (7.35-7.45); ABG TCO2 24.3 mmhg (23-27)
[2020-03-16 20:29] LABS: Allen's Test Y; Oxygen 3 %; Source R/R
--- NOTE | 2020-03-16 20:32 | HMH.EDFEV ---
ED Disposition Clinical Impression: COVID-19 virus detected, Pneumonia due to COVID-19 virus, Elevated erythrocyte sedimentation rate, RBBB (right bundle branch block with left anterior fascicular block), CARMEL (acute kidney injury) Diabetes mellitus with diabetic neuropathy Qualifiers: Diabetes mellitus type: type 2 Diabetes mellitus chcf insulin use: unspecified principal developer insulin use status Qualified Code(s): E11.40 - Type 2 diabetes mellitus with diabetic neuropathy, unspecified Respiratory failure with hypoxia Qualifiers: Chronicity: acute on chronic Qualified Code(s): J96.21 - Acute and chronic respiratory failure with hypoxia UTI (urinary tract infection) Qualifiers: Urinary tract infection type: site unspecified Hematuria presence: without hematuria Qualified Code(s): N39.0 - Urinary tract infection, site not specified Obesity Qualifiers: Obesity type: due to excess calories Obesity classification: adult class 3 (BMI >= 40) Serious obesity comorbidity presence: with serious comorbidity Body mass index: BMI 45.0-49.9 Qualified Code(s): E66.01 - Morbid (severe) obesity due to excess calories; Z68.42 - Body mass index [BMI] 45.0-49.9, adult Disposition: Admitted As Inpatient Condition on Discharge: Serious Referrals: Fito Arambula MD [Primary Care Provider] - - Critical Care Critical Care Time: No Attestation: On 03/16/20, the high probability of a clinically significant, sudden or life threatening deterioration of the following system(s) required my full and direct attention, intervention and personal management. The time I documented below is in addition to time spent performing reported procedures but includes the following listed in this critical care notation. Medical Decision Making - Medical Records Medical records reviewed: Yes: I reviewed the patient's medical records. - Mikie Inquiry Pt receiving controlled substance: No Vital Signs: 03/16/20 20:04 03/16/20 20:28 03/16/20 20:30 Temperature 103.6 F H Temperature Source Oral Pulse Rate [Apical] 91 H 86 Respiratory Rate 28 H 29 H Blood Pressure [Right Arm] 94/43 L 112/42 L Blood Pressure Mean [Right Arm] 60 65 Blood Pressure Source [Right Arm] Automatic Cuff Automatic Cuff Blood Pressure Position [Right Arm] Supine Supine 02 Sat by Pulse Oximetry 84 L 98 98 Oxygen Delivery Method Room Air Nasal Cannula Nasal Cannula Oxygen Flow Rate (LPM) 2 2 03/16/20 21:30 03/16/20 22:00 03/16/20 22:30 Temperature 100.1 F H Temperature Source Oral Pulse Rate [Apical] 86 84 83 Respiratory Rate 27 H 23 22 Blood Pressure [Right Arm] 96/43 L 89/48 L 92/42 L Blood Pressure Mean [Right Arm] 60 61 58 Blood Pressure Source [Right Arm] Automatic Cuff Automatic Cuff Automatic Cuff Blood Pressure Position [Right Arm] Supine Supine Supine 02 Sat by Pulse Oximetry 94 L 93 L 91 L Oxygen Delivery Method Nasal Cannula Nasal Cannula Nasal Cannula Oxygen Flow Rate (LPM) 2 2 2 03/16/20 23:00 03/16/20 23:30 03/17/20 00:00 Temperature Temperature Source Pulse Rate [Apical] 84 84 78 Respiratory Rate 21 Blood Pressure [Right Arm] 93/47 L 94/41 L 93/45 L Blood Pressure Mean [Right Arm] 62 58 61 Blood Pressure Source [Right Arm] Automatic Cuff Automatic Cuff Automatic Cuff Blood Pressure Position [Right Arm] Supine Supine Supine 02 Sat by Pulse Oximetry 91 L 91 L 91 L Oxygen Delivery Method Nasal Cannula Nasal Cannula Nasal Cannula Oxygen Flow Rate (LPM) 2 2 2 03/17/20 00:09 Temperature 98.5 F Temperature Source Oral Pulse Rate [Apical] Respiratory Rate Blood Pressure [Right Arm] Blood Pressure Mean [Right Arm] Blood Pressure Source [Right Arm] Blood Pressure Position [Right Arm] 02 Sat by Pulse Oximetry Oxygen Delivery Method Oxygen Flow Rate (LPM) - Lab Data Lab results reviewed: Yes: I reviewed the patient's lab results. Lab Results 03/16/20 20:25: Chlamy pneumoniae PCR Not detected, Adenovirus (PCR) Not det
--- NOTE | 2020-03-16 20:33 | PC.NURSE ---
Pt has had a known contact with COVID positive. Pt placed in isolation precautions.
[2020-03-16 20:43] LABS: Adenovirus,PCR Not Detected (NotDetected); Bordetella Pertussis Not Detected (NotDetected); Chlamydophila Pneumoniae, PCR Not Detected (NotDetected); Coronavirus 229E Not Detected (NotDetected); Coronavirus NL63 Not Detected (NotDetected); Coronavirus OC43 Not Detected (NotDetected); Coronovirus HKU1,PCR Not Detected (NotDetected); Human Metapneumovirus Not Detected (NotDetected); Influenza A, PCR Not Detected (NotDetected); Influenza AH1, 2009 Not Detected (NotDetected); Influenza AH1, PCR Not Detected (NotDetected); Influenza AH3,PCR Not Detected (NotDetected); Influenza B, PCR Not Detected (NotDetected); Mycoplasma Pneumoniae, PCR Not Detected (NotDetected); Parainfluenza 1, PCR Not Detected (NotDetected); Parainfluenza 2, PCR Not Detected (NotDetected); Parainfluenza 3, PCR Not Detected (NotDetected); Parainfluenza 4, PCR Not Detected (NotDetected); Respiratory Syncytial Virus Not Detected (NotDetected); Rhinovirus/Enterovirus Not Detected (NotDetected)
[2020-03-16 20:48] LABS: Chloride 94 mmol/L (98-107); Potassium 4.8 mmoL/L (3.5-5.1); Sodium 130 mmol/L (136-145)
[2020-03-16 20:50] LABS: Basophils # 0.1 K/mm3 (0-0.2); Hematocrit 38.3 % (37.0-47.0); Hemoglobin 12.4 g/dL (12.2-16.2); Lymphocytes % 18.2 % (10-50); Mean Corpuscular HGB Conc 32.5 g/dL (31.8-35.4); Mean Corpuscular Hemoglobin 29.3 pg (27.0-31.2); Mean Corpuscular Volume 90.4 fl (81-99); Mean Platelet Volume 7.3 fl (7.4-10.4); Monocytes # 0.3 K/mm3 (0.1-1.0); Monocytes % 5.6 % (1.7-9.3); Neutrophils # 4.1 K/mm3 (1.8-7.8); Neutrophils % 75.2 % (37.0-80.0); Platelet Count 167 K/mm3 (142-424); Red Blood Count 4.23 M/mm3 (4.20-5.40); Red Cell Distribution Width 15.2 % (11.5-17.5); White Blood Count 5.4 K/mm3 (4.8-10.8)
[2020-03-16 20:51] LABS: Anion Gap 13.8 mEq/L (5-15); Blood Urea Nitrogen 22 mg/dl (7-17); Carbon Dioxide 27 mmol/L (22.0-30.0); Creatinine Clearance Estimated 25 mL/min (50-200); Estimated Glomerular Filt Rate 37 ml/min (>60); GFR (African American) 44 ML/MIN (>60)
[2020-03-16 20:52] LABS: Calcium 9.4 mg/dl (8.4-10.2); Glucose 119 mg/dl (74-100)
[2020-03-16 20:54] LABS: Lactic Acid 1.3 mmol/L (0.7-2.1)
[2020-03-16 21:20] LABS: Alanine Aminotransferase 13 U/L (12-78); Albumin Level 4.6 g/dl (3.5-5.0); Alkaline Phosphatase 74 U/L (38-126); Aspartate Amino Transferase 18 U/L (14-36); Bilirubin,Direct 0.3 mg/dl (0.0-0.4); Bilirubin,Total 0.3 mg/dl (0.2-1.3); Total Protein,Serum 8.4 g/dl (6.3-8.2)
[2020-03-16 21:21] LABS: Troponin I < 0.01 ng/ml (0.00-0.034)
[2020-03-16 21:21] LABS: Microscopic, Urine URINE MICROSCOPIC (MICROSCOPIC)
[2020-03-16 21:24] LABS: Procalcitonin 0.093 ng/mL (0.0-2.0)
[2020-03-16 21:34] LABS: Erythrocyte Sedimentation Rate 117 mm/hr (0-30)
[2020-03-16 21:44] LABS: Appearance,Urine CLEAR (Clear); Bilirubin,Urine Negative (Negative); Blood, Urine TRACE-I (Negative); Color,Urine YELLOW (Yellow); Glucose,Urine (UA) Negative (Negative); Ketones,Urine Negative (Negative); Leukocyte Esterase,Urine 1+ (Negative); Nitrate,Urine Negative (Negative); Protein,Urine 1+ (Negative); Specific Gravity, Urine 1.025 (1.005-1.030); Urobilinogen,Urine 0.2 EU/dl (0.2)
[2020-03-16 22:07] LABS: Bacteria,Urine 1+ /lpf
[2020-03-16 22:29] LABS: Coronavirus 19, PCR Detected (NotDetected)
[2020-03-16 22:59] LABS: Troponin I 0.01 ng/ml (0.00-0.034)
[2020-03-17] VITALS (9 sets, daily range): BP systolic 93–122; BP diastolic 45–68; PULSE 59–85; RESP 16–21; TEMP 36.2–36.9; O2SAT 18–98; BMI 48.8; BMI 48.9
--- NOTE | 2020-03-17 01:02 | PC.NURSE ---
pt resting quietly in bed without complaint. vss. emv 14. no acute distress. side rails up x2. call light in reach at all times.
[2020-03-17 02:43] LABS: Troponin I 0.01 ng/ml (0.00-0.034)
--- NOTE | 2020-03-17 03:25 | PC.NURSE ---
PT ARRIVED TO THE FLOOR VIA STRETCHER FROM ED W/STAFF AT [phone]
--- NOTE | 2020-03-17 04:43 | PC.NURSE ---
Pt is A&Ox3 and has ambulated to BS 1x this shift with staff x2 max assist. Pt denied any SOB with activity or at rest. Pt on 2LPM NC and sats 90-92%. SR with BBB on tele. Lungs are diminished on auscultation. Pt denies productive cough. Several skin issues noted: DTI to coccyx, red & scalded areas to groin and ABD skin folds, red & scalded area under left breast, and dry/scaly lesions to BLE. Pictures obtained.
[2020-03-17 06:43] LABS: POC Glucose,Bedside 165 (70-110)
--- NOTE | 2020-03-17 08:15 | PC.WOUNDNOTE ---
Wound Location: BLE Pain and/or tenderness Y/N: Tender, dry, scaly, edema
--- NOTE | 2020-03-17 08:49 | PC.WOUNDNOTE ---
Wound Location: Under left breast
--- NOTE | 2020-03-17 08:50 | PC.WOUNDNOTE ---
Wound Location: Groin and ABD folds
--- NOTE | 2020-03-17 09:11 | HMH.PHAINT ---
MEDICATION RECONCILIATION COMPLETED ON PATIENT USING EXTERNAL FILL HISTORY FROM PHARMACY AND LIST FROM MD OFFICE. -NKII BRICENOD
--- NOTE | 2020-03-17 09:29 | HMH.HP ---
*Admission Date: 03/17/20 *History of present illness: Per ED note: Family reports home oxygen saturations of 82%. Family reports patient has just not been feeling well, confused, and shortness of breath for 2 to 3 days. In the emergency department she denies shortness of breath room air saturations of 84%, 2 L per nasal cannula was applied. Patient is well-known to [facility] primary care with past medical history of hypertension, diabetes with diabetic neuropathy, lymphedema, morbid obesity, chronic kidney disease, and degenerative disc disease In the emergency department ABG revealed severe hypoxic respiratory failure, her COVID-19 PCR was also positive White blood cell count was 5.4 and remaining CBC was unremarkable. Sodium was 130, potassium 4.8, BUN 22, creatinine 1.4, GFR 37. ESR elevated at 117 CRP elevated at 76 UA with 1+ leukocyte esterase, 1+ bacteria, no nitrates, and trace blood Chest x-ray revealed bilateral lower lobe pneumonia In the emergency department she received ceftriaxone IV and IV fluids x2 L [facility] History I have reviewed the patient's past medical history: Yes Medical History: Reports:: Anxiety, Depression, Diabetes Mellitus Type 2, Gastroesophageal Reflux Disease(GERD), Hyperlipidemia, Hypertension, Renal Disease, Renal Insufficiency, Urinary Tract Infection Denies:: Cancer, Diabetes Mellitus Type 1, Internal Pacemaker, MRSA *Have you ever received a pneumonia vaccine?: Yes *Have you received a flu vaccine this season?: Yes Other Medical History: Reports: Arthritis, Hypothyroidism Other Surgeries: Yes: No Previous Surgery, Cholecystectomy. No: Pacemaker Amputation: No Fractures: No - *Social History Smoking Status: Never smoker Alcohol Intake: never Alcohol Intake Frequency:: other Substance Use Type: denies use *Occupational Status:: disabled Housing: apartment Household Members: children *Travel in the last 8 weeks: None - Psychiatric History Pschychiatric History:: Reports:: Anxiety, Depression Family Hx:: Cancer Review of Systems - Review of Systems Review of systems:: unable to obtain Patient very lethargic and will only answer no to pain - *Neurologic Reports weakness, Denies localized weakness Meds Home Medications Medication Instructions Recorded Confirmed Type aspirin 81 mg tablet,delayed 81 mg PO DAILY 08/03/17 03/17/20 History release metoprolol succinate 50 mg 50 mg PO DAILY tab 09/18/19 03/17/20 History tablet,extended release 24 hr Atorvastatin Calcium [Lipitor 40mg 40 mg PO DAILY 03/17/20 03/17/20 History Tab] Cyclobenzaprine HCl 10 mg PO BID 03/17/20 03/17/20 History [Cyclobenzaprine 10mg Tab*] Furosemide [Furosemide 20mg Tab*] 20 mg PO BID 03/17/20 03/17/20 History Gabapentin [Gabapentin 400mg Cap] 400 mg PO BID 03/17/20 03/17/20 History Hydrocodone/Acetaminophen 1 each PO BID 03/17/20 03/17/20 History [Hydrocodone-Acetamin 5-325 mg] Levothyroxine Sodium [Synthroid 75 mcg PO DAILY 03/17/20 03/17/20 History 75mcg (0.075mg) tablet] Pantoprazole Sodium [Protonix 40mg 40 mg PO DAILY 03/17/20 03/17/20 History tablet] Potassium Chloride [K-Tab ER 10 10 meq PO DAILY 03/17/20 03/17/20 History mEq] Sitagliptin Phosphate [Januvia 100 mg PO DAILY 03/17/20 03/17/20 History 100mg tablet] Spironolactone [Spironolactone 25 mg PO DAILY 03/17/20 03/17/20 History 25mg Tablet] lisinopriL [Lisinopril 2.5mg Tab] 2.5 mg PO DAILY 03/17/20 03/17/20 History Allergies Allergy/AdvReac Type Severity Reaction Status Date / Time ibuprofen Allergy Severe CHRONIC Verified 02/11/20 10:36 RENAL FAILURE Penicillins Allergy Intermediate I-HIVES Verified 02/11/20 10:36 levofloxacin [From Levaquin] AdvReac Itching Verified 02/11/20 10:36 Exam Vital signs and Labs for Last 24 Hours: Temp Pulse Resp BP Pulse Ox 97.5 F L 62 18 108/59 L 91 L 03/17/20 06:00 03/17/20 06:00 03/17/20 06:00
[2020-03-17 11:49] LABS: POC Glucose,Bedside 145 (70-110)
--- NOTE | 2020-03-17 12:09 | HMH.PULMCON ---
*Reason for consult:: Acute hypoxic respiratory failure, COVID-19 pneumonia *History of present illness: 74-year-old female no prior respiratory complaints prior smoker last smoked 35 years ago presented to hospital with worsening respiratory failure needing oxygen requirements on 8 and pulmonary was called for further management. Patient on further questioning stated worsening respiratory with productive cough and yellowish to whitish phlegm production for the last couple of days. Patient admits improved symptoms since admission to the hospital. [facility] History Medical History: Reports:: Anxiety, Depression, Diabetes Mellitus Type 2, Gastroesophageal Reflux Disease(GERD), Hyperlipidemia, Hypertension, Renal Disease, Renal Insufficiency, Urinary Tract Infection Denies:: Cancer, Diabetes Mellitus Type 1, Internal Pacemaker, MRSA *Have you ever received a pneumonia vaccine?: Yes *Have you received a flu vaccine this season?: Yes Other Medical History: Reports: Arthritis, Hypothyroidism Other Surgeries: Yes: No Previous Surgery, Cholecystectomy. No: Pacemaker Amputation: No Fractures: No - *Social History Smoking Status: Never smoker Alcohol Intake: never Alcohol Intake Frequency:: other Substance Use Type: denies use *Occupational Status:: disabled Housing: apartment Household Members: children *Travel in the last 8 weeks: None - Psychiatric History Pschychiatric History:: Reports:: Anxiety, Depression Family Hx:: Cancer ROS - Review of Systems Review of systems:: pertinent systems reviewed and negative unless documented below - Cons Reports chills, Reports fever(s) - Card Reports shortness of breath with activity, Reports generalized swelling - Resp Respiratory: Reports as per HPI, Reports shortness of breath, Reports chest congestion, Reports cough, Reports excessive phlegm production Meds Home Medications Medication Instructions Recorded Confirmed Type aspirin 81 mg tablet,delayed 81 mg PO DAILY 08/03/17 03/17/20 History release metoprolol succinate 50 mg 50 mg PO DAILY tab 09/18/19 03/17/20 History tablet,extended release 24 hr Atorvastatin Calcium [Lipitor 40mg 40 mg PO DAILY 03/17/20 03/17/20 History Tab] Cyclobenzaprine HCl 10 mg PO BID 03/17/20 03/17/20 History [Cyclobenzaprine 10mg Tab*] Furosemide [Furosemide 20mg Tab*] 20 mg PO BID 03/17/20 03/17/20 History Gabapentin [Gabapentin 400mg Cap] 400 mg PO BID 03/17/20 03/17/20 History Hydrocodone/Acetaminophen 1 each PO BID 03/17/20 03/17/20 History [Hydrocodone-Acetamin 5-325 mg] Levothyroxine Sodium [Synthroid 75 mcg PO DAILY 03/17/20 03/17/20 History 75mcg (0.075mg) tablet] Pantoprazole Sodium [Protonix 40mg 40 mg PO DAILY 03/17/20 03/17/20 History tablet] Potassium Chloride [K-Tab ER 10 10 meq PO DAILY 03/17/20 03/17/20 History mEq] Sitagliptin Phosphate [Januvia 100 mg PO DAILY 03/17/20 03/17/20 History 100mg tablet] Spironolactone [Spironolactone 25 mg PO DAILY 03/17/20 03/17/20 History 25mg Tablet] lisinopriL [Lisinopril 2.5mg Tab] 2.5 mg PO DAILY 03/17/20 03/17/20 History Allergies Allergy/AdvReac Type Severity Reaction Status Date / Time ibuprofen Allergy Severe CHRONIC Verified 02/11/20 10:36 RENAL FAILURE Penicillins Allergy Intermediate I-HIVES Verified 02/11/20 10:36 levofloxacin [From Levaquin] AdvReac Itching Verified 02/11/20 10:36 Exam - Constitutional Constitutional:: no acute distress, comfortable - HENMT Exam HENMT: normocephalic, atraumatic - Eye Exam Eyes:: normal appearance both eyes and related structures - Neck Exam Neck:: thyroid normal, no lymphadenopathy - Respiratory Exam Respiratory:: able to speak in complete sentences Comments: Bilateral coarse breath sounds lower lung maza no audible wheeze heard. - Cardiovascular Exam Cardiac:: S1, S2 - GI Exam GI:: soft, obese - Skin Exam Skin: warm, no rash - Neurological Exam Neurol
--- NOTE | 2020-03-17 18:52 | PC.NURSE ---
A&O TO NAME, YEAR, AND PLACE. PT HAS TOLERATED 2L NC WELL THROUGHOUT SHIFT. RESPIRATIONS REGULAR AND UNLABORED. DIMINISHED LUNG SOUNDS NOTED THROUGHOUT. HAND NURSE ANESTHETIST EQUAL. +2 PULSES NOTED THROUGHOUT. DRY, ROUGH SKIN NOTED TO BLE. REDNESS NOTED TO COCCYX. PT VOIDS PER BSC W 1 PERSON ASSIST. ACTIVE BOWEL SOUNDS HEARD IN ALL 4 QUADRANTS. SOFT AND NONTENDER ABDOMEN. NO BM THUS FAR. NO REPORTS OF PAIN OR SOB. PT WAS UP TO THE CHAIR FOR MOST OF THE AFTERNOON. SHE SEEMS TO BE FEELING A LITTLE BETTER. OT HAS RECEIVED SEVERAL ANTIBIOTICS THIS SHIFT AND TOLERATED WELL. NS INFUSING AT 100ML/HR. PT IS CURRENTLY SITTING IN BED WITH CALL LIGHT WITHIN REACH. BED IN LOWEST POSITION. VSS. WILL CONTINUE TO MONITOR.
[2020-03-17 21:40] LABS: POC Glucose,Bedside 127 (70-110)
[2020-03-18] VITALS: BP 107/56; PULSE 80; PULSE 84; RESP 20; TEMP 36.7; O2SAT 94
[2020-03-18 01:55] LABS: POC Glucose,Bedside 124 (70-110)
[2020-03-18 04:00] VITALS: BP 132/57; PULSE 80; PULSE 91; RESP 21; TEMP 36.4; O2SAT 93
--- NOTE | 2020-03-18 06:03 | PC.NURSE ---
pt has been awake t/o most of the shift, has complained of pain in her back, lungs diminished, remains on 2L NC with sats 93-94%, has not complained of chest pain, did complain of SOA one time, was repositioned and did not complain of SOA again, using BSC with one assist
[2020-03-18 07:10] LABS: POC Glucose,Bedside 127 (70-110)
[2020-03-18 07:27] VITALS: BMI 49.4
[2020-03-18 08:00] VITALS: BP 118/60; PULSE 80; PULSE 90; RESP 20; TEMP 37.2; O2SAT 92
[2020-03-18 08:23] LABS: Basophils % 0.1 % (0.1-2.0); Eosinophils # 0.1 K/mm3 (0.0-0.4); Eosinophils % 0.5 % (0.1-12.0); Hematocrit 35.1 % (37.0-47.0); Hemoglobin 11.9 g/dL (12.2-16.2); Lymphocytes # 0.7 K/mm3 (0.7-4.5); Lymphocytes % 4.8 % (10-50); Mean Corpuscular HGB Conc 33.8 g/dL (31.8-35.4); Mean Corpuscular Hemoglobin 30.2 pg (27.0-31.2); Mean Corpuscular Volume 89.5 fl (81-99); Mean Platelet Volume 7.9 fl (7.4-10.4); Monocytes # 0.5 K/mm3 (0.1-1.0); Monocytes % 3.5 % (1.7-9.3); Neutrophils # 14.1 K/mm3 (1.8-7.8); Neutrophils % 91.1 % (37.0-80.0); Platelet Count 164 K/mm3 (142-424); Red Blood Count 3.92 M/mm3 (4.20-5.40); White Blood Count 15.5 K/mm3 (4.8-10.8)
[2020-03-18 08:28] LABS: MANUAL DIFFERENTIAL MANUAL DIFFERENTIAL (MANUAL DIFF)
[2020-03-18 08:46] LABS: Alanine Aminotransferase 21 U/L (12-78); Albumin/Globulin Ratio 0.9 (1.1-1.8); Alkaline Phosphatase 61 U/L (38-126); Anion Gap 10.1 mEq/L (5-15); Aspartate Amino Transferase 49 U/L (14-36); Bilirubin,Total 0.4 mg/dl (0.2-1.3); Blood Urea Nitrogen 19 mg/dl (7-17); Carbon Dioxide 24 mmol/L (22.0-30.0); Chloride 105 mmol/L (98-107); Creatinine Clearance Estimated 33 mL/min (50-200); Estimated Glomerular Filt Rate 70 ml/min (>60); GFR (African American) 84 ML/MIN (>60); Globulin 3.5 g/dL (1.3-3.2); Glucose 136 mg/dl (74-100); Potassium 4.1 mmoL/L (3.5-5.1); Sodium 135 mmol/L (136-145); Total Protein,Serum 6.5 g/dl (6.3-8.2)
[2020-03-18 08:51] LABS: Calcium 8.4 mg/dl (8.4-10.2)
[2020-03-18 08:54] LABS: Lymphocytes % 6 % (10-50); Monocytes % 5 % (2-9); Neutrophils % 89 % (42-76); Platelet Estimate Normal; RBC Morphology Normal; Total Cells Counted 100
--- NOTE | 2020-03-18 09:31 | HMH.ACPN2 ---
Internal Medicine - PN: Subj *Date: 03/18/20 *Time: 09:31 Interval history: pt c/o low back pain Exam Vital signs and Labs for Last 24 Hours: Temp Pulse Resp BP Pulse Ox 99.0 F 90 20 118/60 92 L 03/18/20 08:00 03/18/20 08:00 03/18/20 08:00 03/18/20 08:00 03/18/20 08:00 Laboratory Results - last 24 hr 03/17/20 11:40: POC Glucose 145 H 03/17/20 16:11: POC Glucose 124 H 03/17/20 20:55: POC Glucose 127 H 03/18/20 06:56: POC Glucose 127 H 03/18/20 08:00: WBC 15.5 H D, RBC 3.92 L, Hgb 11.9 L, Hct 35.1 L, MCV 89.5, MCH 30.2, MCHC 33.8, RDW 15.0, Plt Count 164, MPV 7.9, Neut % (Auto) 91.1 H, Lymph % (Auto) 4.8 L, [place] % (Auto) 3.5, Eos % (Auto) 0.5, Baso % (Auto) 0.1, Neut # (Auto) 14.1 H, Lymph # (Auto) 0.7, [place] # (Auto) 0.5, Eos # (Auto) 0.1, Baso # (Auto) 0.0, Total Counted 100, Neutrophils % (Manual) 89 H, Lymphocytes % (Manual) 6 L, Monocytes % (Manual) 5, Platelet Estimate Normal, RBC Morphology Normal 03/18/20 08:00: Sodium 135 L, Potassium 4.1, Chloride 105, Carbon Dioxide 24, Anion Gap 10.1, BUN 19 H, Creatinine 0.80 D, Estimated Creat Clear 33, Estimated GFR 70, Est GFR ( Amer) 84 D, Glucose 136 H, Calcium 8.4 D, Total Bilirubin 0.4, AST 49 H D, ALT 21 D, Alkaline Phosphatase 61, Total Protein 6.5, Albumin 3.0 L D, Globulin 3.5 H, Albumin/Globulin Ratio 0.9 L I & O for Last 24 hours: Intake & Output 03/15/20 03/16/20 03/17/20 03/18/20 11:59 11:59 11:59 11:59 Intake Total 2290 / 2290 2195 / 2195 Output Total 1000 / 1000 Balance 2290 / 2290 1195 / 1195 Weight 250 lb 252 lb Microbiology Reports for the Last 24 Hours: Microbiology 03/16/20 21:20 Urine,Clean Catch Urine Culture - Preliminary NO GROWTH AFTER 24 HOURS - Constitutional no acute distress - *Routine HEENT Exam Head: Present: normocephalic Eye: Present: PERRL ENT: Present: mucous membranes moist - *Routine Neck Exam Present: supple. Absent: lymphadenopathy - *Routine Respiratory Exam Present: crackles - *Routine Cardiovascular Exam Present: RRR - *Routine Abdominal Exam Present: soft, normoactive bowel sounds. Absent: tenderness - *Routine Extremities Exam Absent: cyanosis, clubbing, edema - *Routine Skin Exam Present: warm. Absent: rash - *Routine Neurological Exam Present: alert, oriented X3 - Routine Psychiatric Exam Present: normal affect Assessment and Plan (1) Morbid obesity with BMI of 45.0-49.9, adult Status: Acute Category: Medical Code(s): E66.01 - Morbid (severe) obesity due to excess calories; Z68.42 - Body mass index [BMI] 45.0-49.9, adult (2) Pneumonia due to COVID-19 virus Status: Acute Category: Medical Code(s): U07.1 - COVID-19; J12.82 - Pneumonia due to coronavirus disease 2019 (3) Elevated erythrocyte sedimentation rate Status: Acute Category: Medical Code(s): R70.0 - Elevated erythrocyte sedimentation rate (4) Respiratory failure with hypoxia Status: Acute Qualifiers: Chronicity: acute on chronic Qualified Code(s): J96.21 - Acute and chronic respiratory failure with hypoxia Category: Medical Code(s): J96.91 - Respiratory failure, unspecified with hypoxia (5) RBBB (right bundle branch block with left anterior fascicular block) Status: Acute Category: Medical Code(s): I45.2 - Bifascicular block (6) CARMEL (acute kidney injury) Status: Acute Category: Medical Code(s): N17.9 - Acute kidney failure, unspecified (7) UTI (urinary tract infection) Status: Acute Qualifiers: Urinary tract infection type: site unspecified Hematuria presence: without hematuria Qualified Code(s): N39.0 - Urinary tract infection, site not specified Category: Medical Code(s): N39.0 - Urinary tract infection, site not specified (8) Obesity Status: Acute Qualifiers: Obesity type: due to excess calories Obesity classification: adult class 3 (BMI >= 40) Serious obesity comorbidity
[2020-03-18 12:00] VITALS: BP 142/78; PULSE 80; PULSE 82; RESP 20; TEMP 36.4; O2SAT 93
--- NOTE | 2020-03-18 13:27 | HMH.CNCARD ---
History of Present Illness Consult date: 03/18/20 Requesting physician: Zev Figueroa Consult reason: shortness of breath Chief complaint: Pneumonia, COVID 19, Diastolic dysfunction Additional Medical History:: 1. Morbid Obesity 2. DM, type 2 3. HTN/HHD/DD A. Echo, 07/2018, 1. Mildly enlarged left atrium, normal left ventricular size, mild concentric left ventricular hypertrophy, visually estimated ejection fraction 55% with no regional wall motion abnormality, grade 1 diastolic dysfunction seen without tissue Doppler evidence of raised left atrial pressure. 2. Mild mitral and tricuspid regurgitation 3. No significant pericardial effusion noted. 4. Anxiety/Depression 5. GERD 6. Hyperlipidemia 7. CKD, stage 3 8. Abnormal EKG with bifascicular block (LAFB, RBBB) since at least 02/2019. History of present illness: 74 yo WF admitted for worsening SOA and hypoxemia. Diagnosed with COVID 19 and pneumonia. History of HHD/Diastolic dysfunction. Troponins normal X 3. No evidence of CHF on CXR but with evidence of worsening bilateral pneumonia. [facility] History Medical History: Reports:: Anxiety, Depression, Diabetes Mellitus Type 2, Gastroesophageal Reflux Disease(GERD), Hyperlipidemia, Hypertension, Renal Disease, Renal Insufficiency, Urinary Tract Infection Denies:: Cancer, Diabetes Mellitus Type 1, Internal Pacemaker, MRSA *Have you ever received a pneumonia vaccine?: Yes *Have you received a flu vaccine this season?: Yes Other Medical History: Reports: Arthritis, Hypothyroidism Other Surgeries: Yes: No Previous Surgery, Cholecystectomy. No: Pacemaker Amputation: No Fractures: No - *Social History Smoking Status: Never smoker Alcohol Intake: never Alcohol Intake Frequency:: other Substance Use Type: denies use *Occupational Status:: disabled Housing: apartment Household Members: children *Travel in the last 8 weeks: None - Psychiatric History Pschychiatric History:: Reports:: Anxiety, Depression Family Hx:: Cancer Meds Home Medications Medication Instructions Recorded Confirmed Type aspirin 81 mg tablet,delayed 81 mg PO DAILY 08/03/17 03/17/20 History release metoprolol succinate 50 mg 50 mg PO DAILY tab 09/18/19 03/17/20 History tablet,extended release 24 hr Atorvastatin Calcium [Lipitor 40mg 40 mg PO DAILY 03/17/20 03/17/20 History Tab] Cyclobenzaprine HCl 10 mg PO BID 03/17/20 03/17/20 History [Cyclobenzaprine 10mg Tab*] Furosemide [Furosemide 20mg Tab*] 20 mg PO BID 03/17/20 03/17/20 History Gabapentin [Gabapentin 400mg Cap] 400 mg PO BID 03/17/20 03/17/20 History Hydrocodone/Acetaminophen 1 each PO BID 03/17/20 03/17/20 History [Hydrocodone-Acetamin 5-325 mg] Levothyroxine Sodium [Synthroid 75 mcg PO DAILY 03/17/20 03/17/20 History 75mcg (0.075mg) tablet] Pantoprazole Sodium [Protonix 40mg 40 mg PO DAILY 03/17/20 03/17/20 History tablet] Potassium Chloride [K-Tab ER 10 10 meq PO DAILY 03/17/20 03/17/20 History mEq] Sitagliptin Phosphate [Januvia 100 mg PO DAILY 03/17/20 03/17/20 History 100mg tablet] Spironolactone [Spironolactone 25 mg PO DAILY 03/17/20 03/17/20 History 25mg Tablet] lisinopriL [Lisinopril 2.5mg Tab] 2.5 mg PO DAILY 03/17/20 03/17/20 History Allergies Allergy/AdvReac Type Severity Reaction Status Date / Time ibuprofen Allergy Severe CHRONIC Verified 02/11/20 10:36 RENAL FAILURE Penicillins Allergy Intermediate I-HIVES Verified 02/11/20 10:36 levofloxacin [From Levaquin] AdvReac Itching Verified 02/11/20 10:36 Exam Vital signs and Labs for Last 24 Hours: Temp Pulse Resp BP Pulse Ox 97.6 F 82 20 142/78 H 93 L 03/18/20 12:00 03/18/20 12:00 03/18/20 12:00 03/18/20 12:00 03/18/20 12:00 Laboratory Results - last 24 hr 03/17/20 16:11: POC Glucose 124 H 03/17/20 20:55: POC Glucose 127 H 03/18/20 06:56: POC Glucose 127 H 03/18/20 08:00: WBC 15.5 H D, RBC 3.92 L, Hgb 11.9 L, Hct 35.1 L, MCV 89.5, MC
[2020-03-18 14:38] LABS: POC Glucose,Bedside 99 (70-110)
[2020-03-18 16:00] VITALS: BP 144/78; PULSE 80; RESP 20; TEMP 36.6; O2SAT 93
--- NOTE | 2020-03-18 16:37 | HMH.PULMPN ---
Internal Medicine - PN: Subj *Date: 03/18/20 *Time: 16:37 Interval history: No acute respite events overnight. Patient respiratory status remained stable on 2 L nasal cannula. Exam - Constitutional Constitutional:: no acute distress, comfortable - HENMT Exam HENMT: normocephalic, atraumatic - Eye Exam Eyes:: eyelids normal, normal conjunctiva - Neck Exam Neck:: thyroid normal, no lymphadenopathy - Respiratory Exam Respiratory:: able to speak in complete sentences, bibailar crackels heard, crackles - Cardiovascular Exam Cardiac:: regular rhythm, S1, S2 - GI Exam GI:: soft, obese - Skin Exam Skin: warm, no rash - Neurological Exam Neurological: alert, awake - Extremities Exam Extremities: no cyanosis, no clubbing, edema Assessment and Plan (1) Pneumonia due to COVID-19 virus Status: Acute Category: Medical Code(s): U07.1 - COVID-19; J12.82 - Pneumonia due to coronavirus disease 2019 (2) Morbid obesity with BMI of 45.0-49.9, adult Status: Acute Category: Medical Code(s): E66.01 - Morbid (severe) obesity due to excess calories; Z68.42 - Body mass index [BMI] 45.0-49.9, adult (3) Elevated erythrocyte sedimentation rate Status: Acute Category: Medical Code(s): R70.0 - Elevated erythrocyte sedimentation rate (4) Respiratory failure with hypoxia Status: Acute Qualifiers: Chronicity: acute on chronic Qualified Code(s): J96.21 - Acute and chronic respiratory failure with hypoxia Category: Medical Code(s): J96.91 - Respiratory failure, unspecified with hypoxia (5) RBBB (right bundle branch block with left anterior fascicular block) Status: Acute Category: Medical Code(s): I45.2 - Bifascicular block (6) CARMEL (acute kidney injury) Status: Acute Category: Medical Code(s): N17.9 - Acute kidney failure, unspecified (7) UTI (urinary tract infection) Status: Acute Qualifiers: Urinary tract infection type: site unspecified Hematuria presence: without hematuria Qualified Code(s): N39.0 - Urinary tract infection, site not specified Category: Medical Code(s): N39.0 - Urinary tract infection, site not specified (8) Obesity Status: Acute Qualifiers: Obesity type: due to excess calories Obesity classification: adult class 3 (BMI >= 40) Serious obesity comorbidity presence: with serious comorbidity Body mass index: BMI 45.0-49.9 Qualified Code(s): E66.01 - Morbid (severe) obesity due to excess calories; Z68.42 - Body mass index [BMI] 45.0-49.9, adult Category: Medical Code(s): E66.9 - Obesity, unspecified (9) Diabetes mellitus with diabetic neuropathy Status: Chronic Qualifiers: Diabetes mellitus type: type 2 Diabetes mellitus long term care social worker insulin use: unspecified fdc insulin use status Qualified Code(s): E11.40 - Type 2 diabetes mellitus with diabetic neuropathy, unspecified Category: Medical Code(s): E11.40 - Type 2 diabetes mellitus with diabetic neuropathy, unspecified (10) Hyperlipidemia Status: Chronic Qualifiers: Hyperlipidemia type: mixed hyperlipidemia Qualified Code(s): E78.2 - Mixed hyperlipidemia Category: Medical Code(s): E78.5 - Hyperlipidemia, unspecified (11) Abnormal ECG Status: Chronic Category: Medical Code(s): R94.31 - Abnormal electrocardiogram [ECG] [EKG] (12) Edema of both lower extremities Status: Acute Category: Medical Code(s): R60.0 - Localized edema (13) Hypertension Status: Chronic Qualifiers: Hypertension type: essential hypertension Qualified Code(s): I10 - Essential (primary) hypertension Category: Medical Code(s): I10 - Essential (primary) hypertension (14) Lymphedema Status: Chronic Category: Medical Code(s): I89.0 - Lymphedema, not elsewhere classified (15) HHD (hypertensive heart disease) Status: Acute Category: Medical Code(s): I11.9 - Hypertensive heart disease without heart failure (16) Diastolic dysfun
--- NOTE | 2020-03-18 19:58 | PC.NURSE ---
pt has been up to chair for most of the day. she has vomited twice this shift, medicate per may. pt has complained of pain to her back, medicated per may. pt this afternoon pulled iv out, new 20GIV placed to pt left ac. pt is currently in bed with her call light attached to her gown. vss. will cont. to monitor.
[2020-03-18 20:00] VITALS: BP 123/59; PULSE 70; PULSE 79; RESP 24; TEMP 37.6; O2SAT 89
[2020-03-18 21:40] LABS: POC Glucose,Bedside 102 (70-110)
[2020-03-19] VITALS (21 sets, daily range): BP systolic 58–202; BP diastolic 40–115; PULSE 48–107; RESP 18–30; TEMP 35.8–37.6; O2SAT 84–97; BMI 48.1
--- NOTE | 2020-03-19 04:00 | PC.NURSE ---
Addendum entered by Coleen Newell RN 03/19/20 04:22: Due to pt being non-compliant w/ removing oxygen, continuous pulse placed on pt. Pt c/o lower back pain x1 this shift, pt medicated per MAY. Original Note: Pt has been A&Ox2 this shift. Pt is not oriented to place or time. Pt has not rested at all this shift, only for about 30 min total this shift. Pt has been very non compliant this shift and has pulled off NC multiple times resulting in o2 sats in the upper 60's-lower 70's. at 0330 pt took off NC and was satting at 65%, breathing was labored and pt was using all accessory muscles. Pt put all the way up to 6L NC and would not get above 74%. RT called, nonrebreather placed on pt. Recovery time took approximately 8 min to get to 88%. Pt has tried to get up from bed multiple times w/o calling out for help. Pull alarm attached to pt do to bed not having have a bed alarm. Pt has been a x2 assist w/ ambulation this shift. Pt has been incontinent of urine x2 this shift. Pt's family has called numerous times for updates t/o this shift. No other acute changes or complaints at this time.
--- NOTE | 2020-03-19 04:31 | PC.NURSE ---
Due to decreasing o2 sats, pt being unsteady on feet and pt being in a non-weigh bed, pt weight not obtained this shift
--- NOTE | 2020-03-19 06:00 | XR_ITS ---
PROCEDURE: XR CHEST PORTABLE CLINICAL HISTORY: pneumonia Covid19 pneumonia COMPARISON: CR CXR CHEST(2 VIEWS-NOT PORTABLE) from 06/11/2013 CR XR CHEST PORTABLE from 03/16/2020 FINDINGS: The cardiomediastinal silhouette and pulmonary vascularity are within normal limits. There has been interval progression of the bilateral pneumonia in both upper and lower lobes with some sparing of the apices. No evidence of pneumothorax No acute bony abnormalities. IMPRESSION: Worsening bilateral pneumonia Dictated by: Jonny Mcgowan MD 03/19/2020 06:48 Jonny Mcgowan MD in [facility] 03/19/2020 06:48
[2020-03-19 06:27] LABS: Basophils % 0.2 % (0.1-2.0); Hematocrit 37.3 % (37.0-47.0); Hemoglobin 12.6 g/dL (12.2-16.2); Lymphocytes # 0.8 K/mm3 (0.7-4.5); Lymphocytes % 7.3 % (10-50); Mean Corpuscular HGB Conc 33.7 g/dL (31.8-35.4); Mean Corpuscular Hemoglobin 30.4 pg (27.0-31.2); Mean Corpuscular Volume 90.1 fl (81-99); Mean Platelet Volume 7.8 fl (7.4-10.4); Monocytes # 0.8 K/mm3 (0.1-1.0); Monocytes % 7.5 % (1.7-9.3); Neutrophils # 8.9 K/mm3 (1.8-7.8); Platelet Count 179 K/mm3 (142-424); Red Blood Count 4.14 M/mm3 (4.20-5.40); Red Cell Distribution Width 15.2 % (11.5-17.5); White Blood Count 10.5 K/mm3 (4.8-10.8)
[2020-03-19 06:33] LABS: Alanine Aminotransferase 23 U/L (12-78); Albumin Level 3.1 g/dl (3.5-5.0); Albumin/Globulin Ratio 0.9 (1.1-1.8); Alkaline Phosphatase 63 U/L (38-126); Anion Gap 10.8 mEq/L (5-15); Aspartate Amino Transferase 56 U/L (14-36); Bilirubin,Total 0.4 mg/dl (0.2-1.3); Blood Urea Nitrogen 18 mg/dl (7-17); Calcium 8.4 mg/dl (8.4-10.2); Carbon Dioxide 26 mmol/L (22.0-30.0); Chloride 102 mmol/L (98-107); Creatinine Clearance Estimated 33 mL/min (50-200); Estimated Glomerular Filt Rate 61 ml/min (>60); GFR (African American) 74 ML/MIN (>60); Globulin 3.3 g/dL (1.3-3.2); Glucose 123 mg/dl (74-100); Potassium 3.8 mmoL/L (3.5-5.1); Sodium 135 mmol/L (136-145); Total Protein,Serum 6.4 g/dl (6.3-8.2)
[2020-03-19 06:37] LABS: POC Glucose,Bedside 118 (70-110)
[2020-03-19 06:39] LABS: MANUAL DIFFERENTIAL MANUAL DIFFERENTIAL (MANUAL DIFF)
--- NOTE | 2020-03-19 07:29 | PC.NURSE ---
Nurse called to ask me to check on pt. Entering the room pt crawling out og bed wiht o2 off. SRNA entered and helped pull pt up in bad with rn.
--- NOTE | 2020-03-19 08:33 | CT_ITS ---
PROCEDURE: CT ANGIO CHEST CLINCIAL INDICATION: júnior sanders COMPARISON: CR XR CHEST PORTABLE from 03/19/2020 TECHNIQUE: IV Contrast: 70ML Isovue 370 Axial images obtained with sagittal and coronal reformats. All CT scans at the facility use one or more dose reduction, viz: automated exposure control, ma/kV adjustment per patient size (including targeted exams where dose is matched to indication, i.e. head), or iterative reconstruction technique. FINDINGS: HEART AND MEDIASTINAL STRUCTURES: No mediastinal or hilar mass or adenopathy. No evidence of aortic aneurysm or dissection. No evidence of pulmonary embolus. LUNGS AND PLEURAL SPACES: There is severe bilateral alveolar opacification multi centric in nature. The opacification is composed of dense consolidation and scattered ground-glass attenuation consistent with diffuse bilateral pneumonia. There are trace bilateral pleural effusions. No evidence of pneumothorax. BONY STRUCTURES: Multilevel degenerative change in the thoracic spine. UPPER ABDOMEN: Unremarkable. ADDITIONAL FINDINGS: No other significant abnormalities. IMPRESSION: Severe bilateral pneumonia with trace bilateral effusions. No evidence of pulmonary embolus. Dictated by: Jonny Mcgowan MD 03/19/2020 12:33 Jonny Mcgowan MD in [facility] 03/19/2020 12:33
--- NOTE | 2020-03-19 08:44 | HMH.ACPN2 ---
Internal Medicine - PN: Subj *Date: 03/19/20 *Time: 08:10 Interval history: pt sitting up in bed wearing nonrebreather. states she feels better today Exam Vital signs and Labs for Last 24 Hours: Temp Pulse Resp BP Pulse Ox 99.6 F 107 H 24 133/64 89 L 03/19/20 04:00 03/19/20 04:00 03/19/20 04:00 03/19/20 04:00 03/19/20 04:00 Laboratory Results - last 24 hr 03/18/20 08:00: Total Counted 100, Neutrophils % (Manual) 89 H, Lymphocytes % (Manual) 6 L, Monocytes % (Manual) 5, Platelet Estimate Normal, RBC Morphology Normal 03/18/20 08:00: Sodium 135 L, Potassium 4.1, Chloride 105, Carbon Dioxide 24, Anion Gap 10.1, BUN 19 H, Creatinine 0.80 D, Estimated Creat Clear 33, Estimated GFR 70, Est GFR ( Amer) 84 D, Glucose 136 H, Calcium 8.4 D, Total Bilirubin 0.4, AST 49 H D, ALT 21 D, Alkaline Phosphatase 61, Total Protein 6.5, Albumin 3.0 L D, Globulin 3.5 H, Albumin/Globulin Ratio 0.9 L 03/18/20 14:30: POC Glucose 99 03/18/20 21:19: POC Glucose 102 03/19/20 05:02: WBC 10.5 D, RBC 4.14 L, Hgb 12.6, Hct 37.3, MCV 90.1, MCH 30.4, MCHC 33.7, RDW 15.2, Plt Count 179, MPV 7.8, Neut % (Auto) 85.0 H, Lymph % (Auto) 7.3 L, [place] % (Auto) 7.5, Eos % (Auto) 0.0 L, Baso % (Auto) 0.2, Neut # (Auto) 8.9 H, Lymph # (Auto) 0.8, [place] # (Auto) 0.8, Eos # (Auto) 0.0, Baso # (Auto) 0.0 03/19/20 05:02: Sodium 135 L, Potassium 3.8, Chloride 102, Carbon Dioxide 26, Anion Gap 10.8, BUN 18 H, Creatinine 0.90, Estimated Creat Clear 33, Estimated GFR 61, Est GFR ( Amer) 74, Glucose 123 H, Calcium 8.4, Total Bilirubin 0.4, AST 56 H, ALT 23, Alkaline Phosphatase 63, Total Protein 6.4, Albumin 3.1 L, Globulin 3.3 H, Albumin/Globulin Ratio 0.9 L 03/19/20 06:30: POC Glucose 118 H I & O for Last 24 hours: Intake & Output 03/16/20 03/17/20 03/18/20 03/19/20 11:59 11:59 11:59 11:59 Intake Total 2290 / 2290 2195 / 2195 720 / 720 Output Total 1000 / 1000 Balance 2290 / 2290 1195 / 1195 720 / 720 Weight 250 lb 252 lb Microbiology Reports for the Last 24 Hours: Microbiology 03/16/20 20:25 Blood Blood Culture - Preliminary NO GROWTH AFTER 48 HOURS 03/16/20 20:25 Blood Blood Culture - Preliminary NO GROWTH AFTER 48 HOURS 03/16/20 21:20 Urine,Clean Catch Urine Culture - Preliminary - Constitutional no acute distress, obese - *Routine HEENT Exam Head: Present: normocephalic Eye: Present: PERRL ENT: Present: mucous membranes moist - *Routine Neck Exam Present: supple. Absent: lymphadenopathy - *Routine Respiratory Exam Present: decreased breath sounds, crackles - *Routine Cardiovascular Exam Present: RRR - *Routine Abdominal Exam Present: soft, normoactive bowel sounds. Absent: tenderness - *Routine Extremities Exam Present: normal capillary refill. Absent: cyanosis, clubbing, edema Comments: caban, no redness - *Routine Skin Exam Present: warm. Absent: rash Comments: caban to ele lower ext - *Routine Neurological Exam Present: alert, oriented X3 - Routine Psychiatric Exam Present: normal affect Assessment and Plan (1) Pneumonia due to COVID-19 virus Status: Acute Category: Medical Code(s): U07.1 - COVID-19; J12.82 - Pneumonia due to coronavirus disease 2019 (2) Morbid obesity with BMI of 45.0-49.9, adult Status: Acute Category: Medical Code(s): E66.01 - Morbid (severe) obesity due to excess calories; Z68.42 - Body mass index [BMI] 45.0-49.9, adult (3) Elevated erythrocyte sedimentation rate Status: Acute Category: Medical Code(s): R70.0 - Elevated erythrocyte sedimentation rate (4) Respiratory failure with hypoxia Status: Acute Qualifiers: Chronicity: acute on chronic Qualified Code(s): J96.21 - Acute and chronic respiratory failure with hypoxia Category: Medical Code(s): J96.91 - Respiratory failure, unspecified with hypoxia (5) RBBB (right bundle branch block with left a
[2020-03-19 09:11] LABS: Lymphocytes % 8 % (10-50); Monocytes % 9 % (2-9); Neutrophils % 83 % (42-76); Platelet Estimate Normal; RBC Morphology Normal; Total Cells Counted 100
--- NOTE | 2020-03-19 09:34 | HMH.PNCARD ---
Subjective Date: 03/19/20 Time: 09:34 Principal diagnosis: Pneumonia, COVID 19 Interval history: 74-year-old white female in bed on nonrebreather mask in no acute distress. Patient states her breathing is about the same. She denies any chest pain, pressure or tightness. Exam Vital signs and Labs for Last 24 Hours: Temp Pulse Resp BP Pulse Ox 97.1 F L 68 24 112/58 L 87 L 03/19/20 08:00 03/19/20 08:00 03/19/20 08:00 03/19/20 08:00 03/19/20 08:00 Laboratory Results - last 24 hr 03/18/20 14:30: POC Glucose 99 03/18/20 21:19: POC Glucose 102 03/19/20 05:02: WBC 10.5 D, RBC 4.14 L, Hgb 12.6, Hct 37.3, MCV 90.1, MCH 30.4, MCHC 33.7, RDW 15.2, Plt Count 179, MPV 7.8, Neut % (Auto) 85.0 H, Lymph % (Auto) 7.3 L, [place] % (Auto) 7.5, Eos % (Auto) 0.0 L, Baso % (Auto) 0.2, Neut # (Auto) 8.9 H, Lymph # (Auto) 0.8, [place] # (Auto) 0.8, Eos # (Auto) 0.0, Baso # (Auto) 0.0, Total Counted 100, Neutrophils % (Manual) 83 H, Lymphocytes % (Manual) 8 L, Monocytes % (Manual) 9, Platelet Estimate Normal, RBC Morphology Normal 03/19/20 05:02: Sodium 135 L, Potassium 3.8, Chloride 102, Carbon Dioxide 26, Anion Gap 10.8, BUN 18 H, Creatinine 0.90, Estimated Creat Clear 33, Estimated GFR 61, Est GFR ( Amer) 74, Glucose 123 H, Calcium 8.4, Total Bilirubin 0.4, AST 56 H, ALT 23, Alkaline Phosphatase 63, Total Protein 6.4, Albumin 3.1 L, Globulin 3.3 H, Albumin/Globulin Ratio 0.9 L 03/19/20 06:30: POC Glucose 118 H I & O for Last 24 hours: Intake & Output 03/16/20 03/17/20 03/18/2015/21 11:59 11:59 11:59 11:59 Intake Total 2290 / 2290 2195 / 2195 720 / 720 Output Total 1000 / 1000 Balance 2290 / 2290 1195 / 1195 720 / 720 Weight 250 lb 252 lb Microbiology Reports for the Last 24 Hours: Microbiology 03/16/20 20:25 Blood Blood Culture - Preliminary NO GROWTH AFTER 48 HOURS 03/16/20 20:25 Blood Blood Culture - Preliminary NO GROWTH AFTER 48 HOURS 03/16/20 21:20 Urine,Clean Catch Urine Culture - Preliminary - *Routine Respiratory Exam Present: decreased breath sounds, diminished air movement - *Routine Cardiovascular Exam Present: RRR - *Routine Extremities Exam Present: edema. Absent: cyanosis, clubbing Progress Note: A&P (1) Pneumonia due to COVID-19 virus Status: Acute (2) Morbid obesity with BMI of 45.0-49.9, adult Status: Acute (3) Elevated erythrocyte sedimentation rate Status: Acute (4) Respiratory failure with hypoxia Status: Acute (5) RBBB (right bundle branch block with left anterior fascicular block) Status: Acute (6) CARMEL (acute kidney injury) Status: Acute (7) UTI (urinary tract infection) Status: Acute (8) Obesity Status: Acute (9) Diabetes mellitus with diabetic neuropathy Status: Chronic (10) Hyperlipidemia Status: Chronic (11) Abnormal ECG Status: Chronic (12) Edema of both lower extremities Status: Acute (13) Hypertension Status: Chronic (14) Lymphedema Status: Chronic (15) HHD (hypertensive heart disease) Status: Acute (16) Diastolic dysfunction with chronic heart failure Status: Acute Assessment and Plan for All Diagnoses:: Patient's oxygen saturation has decreased slightly to the high 80s despite nonrebreather at 15 L/min. Concern for worsening pneumonia versus acute exacerbation of chronic diastolic congestive heart failure. Fluids have been discontinued and additional Lasix has been ordered along with CT scan of the chest.
--- NOTE | 2020-03-19 12:14 | PC.NURSE ---
pt set up vapothrem at this with cup left at bed side.
--- NOTE | 2020-03-19 13:27 | HMH.PULMPN ---
Internal Medicine - PN: Subj *Date: 03/19/20 *Time: 13:27 Interval history: Patient respiratory status worsen overnight, this morning on 100% nonrebreather Saturating in high 80s Exam - Constitutional Comment:: Patient appears to be in mild respiratory distress. - HENMT Exam HENMT: atraumatic - Eye Exam Eyes:: eyelids normal, normal conjunctiva - Neck Exam Neck:: thyroid normal, no lymphadenopathy - Respiratory Exam Comments: Bilateral coarse breath sounds with no audible wheeze. Patient appeared to be in mild respiratory distress. On nonrebreather only saturating high 80s. Respiratory status significantly worsened compared to prior. - Cardiovascular Exam Cardiac:: S1, S2 - GI Exam GI:: soft, obese - Skin Exam Skin: warm - Neurological Exam Neurological: alert, awake, normal cognition - Extremities Exam Extremities: no cyanosis, no clubbing, edema Assessment and Plan (1) Pneumonia due to COVID-19 virus Status: Acute Category: Medical Code(s): U07.1 - COVID-19; J12.82 - Pneumonia due to coronavirus disease 2019 (2) Morbid obesity with BMI of 45.0-49.9, adult Status: Acute Category: Medical Code(s): E66.01 - Morbid (severe) obesity due to excess calories; Z68.42 - Body mass index [BMI] 45.0-49.9, adult (3) Elevated erythrocyte sedimentation rate Status: Acute Category: Medical Code(s): R70.0 - Elevated erythrocyte sedimentation rate (4) Respiratory failure with hypoxia Status: Acute Qualifiers: Chronicity: acute on chronic Qualified Code(s): J96.21 - Acute and chronic respiratory failure with hypoxia Category: Medical Code(s): J96.91 - Respiratory failure, unspecified with hypoxia (5) RBBB (right bundle branch block with left anterior fascicular block) Status: Acute Category: Medical Code(s): I45.2 - Bifascicular block (6) CARMEL (acute kidney injury) Status: Acute Category: Medical Code(s): N17.9 - Acute kidney failure, unspecified (7) UTI (urinary tract infection) Status: Acute Qualifiers: Urinary tract infection type: site unspecified Hematuria presence: without hematuria Qualified Code(s): N39.0 - Urinary tract infection, site not specified Category: Medical Code(s): N39.0 - Urinary tract infection, site not specified (8) Obesity Status: Acute Qualifiers: Obesity type: due to excess calories Obesity classification: adult class 3 (BMI >= 40) Serious obesity comorbidity presence: with serious comorbidity Body mass index: BMI 45.0-49.9 Qualified Code(s): E66.01 - Morbid (severe) obesity due to excess calories; Z68.42 - Body mass index [BMI] 45.0-49.9, adult Category: Medical Code(s): E66.9 - Obesity, unspecified (9) Diabetes mellitus with diabetic neuropathy Status: Chronic Qualifiers: Diabetes mellitus type: type 2 Diabetes mellitus rn x ray insulin use: unspecified rn x ray insulin use status Qualified Code(s): E11.40 - Type 2 diabetes mellitus with diabetic neuropathy, unspecified Category: Medical Code(s): E11.40 - Type 2 diabetes mellitus with diabetic neuropathy, unspecified (10) Hyperlipidemia Status: Chronic Qualifiers: Hyperlipidemia type: mixed hyperlipidemia Qualified Code(s): E78.2 - Mixed hyperlipidemia Category: Medical Code(s): E78.5 - Hyperlipidemia, unspecified (11) Abnormal ECG Status: Chronic Category: Medical Code(s): R94.31 - Abnormal electrocardiogram [ECG] [EKG] (12) Edema of both lower extremities Status: Acute Category: Medical Code(s): R60.0 - Localized edema (13) Hypertension Status: Chronic Qualifiers: Hypertension type: essential hypertension Qualified Code(s): I10 - Essential (primary) hypertension Category: Medical Code(s): I10 - Essential (primary) hypertension (14) Lymphedema Status: Chronic Category: Medical Code(s): I89.0 - Lymphedema, not elsewhere classified (15) HHD (hypertensive hea
--- NOTE | 2020-03-19 14:06 | PC.NURSE ---
PT PLACED ON VAPOTHERM THIS AM. PT NON COMPLIANT WITH LEAVING VAPOTHERM ON. SOFT MITTS PLACED ON PATIENT. FAMILY UPDATED ON CARE. O2 SAT >88%
[2020-03-19 15:49] LABS: POC Glucose,Bedside 121 (70-110)
--- NOTE | 2020-03-19 16:22 | PC.NURSE ---
Addendum entered by Patricia Turner RN 03/19/20 18:06: 1705- dr. yi called stating that dr. crockett is the accepting physician at , bed is unavailable, and that if or when a bed becomes available pt would need to be intubated for transport. Original Note: pt daughter request patient to be transferred to where she works. md dowd.
--- NOTE | 2020-03-19 16:46 | HMH.DCSUM ---
General - General Admission date:: 03/17/20 Discharge date: 03/19/20 HPI HPI: Per ED note: Family reports home oxygen saturations of 82%. Family reports patient has just not been feeling well, confused, and shortness of breath for 2 to 3 days. In the emergency department she denies shortness of breath room air saturations of 84%, 2 L per nasal cannula was applied. Patient is well-known to [facility] primary care with past medical history of hypertension, diabetes with diabetic neuropathy, lymphedema, morbid obesity, chronic kidney disease, and degenerative disc disease In the emergency department ABG revealed severe hypoxic respiratory failure, her COVID-19 PCR was also positive White blood cell count was 5.4 and remaining CBC was unremarkable. Sodium was 130, potassium 4.8, BUN 22, creatinine 1.4, GFR 37. ESR elevated at 117 CRP elevated at 76 UA with 1+ leukocyte esterase, 1+ bacteria, no nitrates, and trace blood Chest x-ray revealed bilateral lower lobe pneumonia In the emergency department she received ceftriaxone IV and IV fluids x2 L Hospital Course Hospital Course: Laboratory Tests 03/16/20 03/16/20 03/16/20 20:25 20:25 20:25 WBC 5.4 RBC 4.23 Hgb 12.4 Hct 38.3 MCV 90.4 MCH 29.3 MCHC 32.5 RDW 15.2 Plt Count 167 MPV 7.3 L Neut % (Auto) 75.2 Lymph % (Auto) 18.2 [place] % (Auto) 5.6 Eos % (Auto) 0.0 L Baso % (Auto) 1.0 Neut # (Auto) 4.1 Lymph # (Auto) 1.0 [place] # (Auto) 0.3 Eos # (Auto) 0.0 Baso # (Auto) 0.1 Total Counted Neutrophils % (Manual) Lymphocytes % (Manual) Monocytes % (Manual) Platelet Estimate RBC Morphology ESR 117 H Specimen Source O2 % ABG pH ABG pCO2 ABG pO2 ABG HCO3 ABG Total CO2 ABG O2 Saturation ABG Base Excess Jonny Test Sodium 130 L Potassium 4.8 Chloride 94 L Carbon Dioxide 27 Anion Gap 13.8 BUN 22 H Creatinine 1.40 H Estimated Creat Clear 25 Estimated GFR 37 L Est GFR ( Amer) 44 L Glucose 119 H POC Glucose Lactate Calcium 9.4 Total Bilirubin Direct Bilirubin Conjugated Bilirubin Indirect Bilirubin Unconjugated Bilirubin AST ALT Alkaline Phosphatase Troponin I < 0.01 C-Reactive Protein 76.0 H Total Protein Albumin Globulin Albumin/Globulin Ratio Procalcitonin 0.093 Urine Color Urine Appearance Urine pH Ur Specific [place] Urine Protein Urine Glucose (UA) Urine Ketones Urine Blood Urine Nitrate Urine Bilirubin Urine Urobilinogen Ur Leukocyte Esterase Urine RBC Urine WBC Ur Squamous Epith Cells Urine Bacteria Chlamy pneumoniae PCR Not detected Adenovirus (PCR) Not detected B. pertussis DNA (PCR) Not detected Coronavirus OC43 (PCR) Not detected Coronavirus HKU1 (PCR) Not detected Coronavirus 229E (PCR) Not detected SARS-CoV-2 (PCR) Detected A Coronavirus NL63 (PCR) Not detected Human Metapneumovir PCR Not detected Influenza A (H1) PCR Not detected Influ A (H1N1/09) PCR Not detected Influenza A (H3) PCR Not detected Influenza Type A (PCR) Not detected Influenza Type B (PCR) Not detected M. pneumoniae (PCR) Not detected Parainfluenza 1 (PCR) Not detected Parainfluenza 2 (PCR) Not detected Parainfluenza 3 (PCR) Not detected Parainfluenza 4 (PCR) Not detected RSV (PCR) Not detected Entero/Rhino (PCR) Not detected 03/16/20 03/16/20 03/16/20 20:25 20:25 20:27 WBC RBC Hgb Hct MCV MCH MCHC RDW Plt Count MPV Neut % (Auto) Lymph % (Auto) [place] % (Auto) Eos % (Auto) Baso % (Auto) Neut # (Auto) Lymph # (Auto) [place] # (Auto) Eos # (Auto) Baso # (Auto) Total Counted Neutrophils % (Manual) Lymphocytes % (Manual) Monocytes % (Man
[2020-03-19 16:56] LABS: ABG HCO3 23.9 mmhg (22.0-26.0); ABG Oxygen Saturation 80 % (90-100); ABG PCO2 45.8 mmhg (35.0-45.0); ABG PH 7.34 mmol/L (7.35-7.45); ABG TCO2 25.3 mmhg (23-27)
[2020-03-19 16:59] LABS: Allen's Test Acceptable; Oxygen 40L 100% %; Source Left Radial
--- NOTE | 2020-03-19 18:08 | PC.NURSE ---
abg results called to dr. yi. no new orders with that order to put in a recio cath.
[2020-03-19 19:10] LABS: Microscopic, Urine URINE MICROSCOPIC (MICROSCOPIC)
[2020-03-19 19:13] LABS: Appearance,Urine CLEAR (Clear); Bilirubin,Urine Negative (Negative); Blood, Urine Negative (Negative); Color,Urine YELLOW (Yellow); Glucose,Urine (UA) Negative (Negative); Ketones,Urine Negative (Negative); Leukocyte Esterase,Urine Negative (Negative); Nitrate,Urine Negative (Negative); Protein,Urine Negative (Negative); Urobilinogen,Urine 0.2 EU/dl (0.2)
[2020-03-19 19:29] LABS: RBC,Urine Occasional #/hpf (0-3); Squamous Epithelial Cell,Urine Occasional #/hpf (0-5)
--- NOTE | 2020-03-19 20:07 | PC.NURSE ---
pt has been non compliant with keeping o2 on all shift, regardless of the soft mitts in place. pt has also been picking at her lips. oral care given q2hr with lip moisturizer on. recio inserted per with 2000ml output from recio. pt cont. to name, PEBBLES, knows she is not at home, and the year. bed alarm on, call light within reach. report given to Nieves Canales RN
--- NOTE | 2020-03-19 20:33 | PC.NURSE ---
Received phone call from Dona in bed assignment. They might potentially have
--- NOTE | 2020-03-19 22:10 | PC.NURSE ---
ET tube 7.5, 26 at lip. Vent settings tidal volume 440, PEEP 12, rate 18, and 100%
--- NOTE | 2020-03-19 22:24 | XR_ITS ---
PROCEDURE: XR CHEST PORTABLE CLINICAL HISTORY: PT INTUBATED Pneumonia COMPARISON: CR CXR CHEST(2 VIEWS-NOT PORTABLE) from 06/11/2013 CR XR CHEST PORTABLE from 03/16/[address] ANGIO CHEST from 03/19/2020 CR XR CHEST PORTABLE from 03/19/2020 FINDINGS: There is an endotracheal tube. The tip is slightly low approximately 2 cm above the madeline. The tube could be withdrawn approximately 2 cm. There is diffuse bilateral alveolar opacification consistent with diffuse which is worse compared to the previous exam IMPRESSION: Endotracheal tube tip 2 cm above the madeline Diffuse bilateral pneumonia which appears worse Dictated by: Jonny Mcgowan MD 03/19/2020 23:09 Jonny Mcgowan MD in [facility] 03/19/2020 23:09
--- NOTE | 2020-03-19 22:52 | HMH.PROC ---
[facility] Procedure Note Procedure Note:: Intubation: Performed by: Clem Serrano M.D. Consent: Verbal consent not obtained. The procedure was performed in an emergent situation. Time out: Immediately prior to procedure a time out was called to verify the correct patient, procedure, equipment, computer support specialist instructor and site/side marked as required. Indications: acute hypoxic respiratory failure 2/2 COVID Intubation method: video laryngoscopy w/RSI Meds: Etomidate 30 MG IV followed by 150 mg IV succinylcholine pushed by myself Preoxygenation: BVM and nonrebreather mask Laryngoscope size: Mac 3 Tube size: 7.5 mm Tube type: cuffed Number of attempts: 1 Cords visualized: yes Post-procedure assessment: chest rise, Bilateral breath sounds, +CO2 detector Breath sounds: equal and absent over the epigastrium Cuff inflated: yes ETT to lip: 23 cm Tube secured with: adhesive tape Chest x-ray interpreted by me. Chest x-ray findings: endotracheal tube in appropriate position but does appear to be 1 cm deep. Tube to be pulled back 1 cm. Patient tolerance: Patient tolerated the procedure well with no immediate complications. IV fluids given during procedure with propofol ordered for post intubation sedation. Push dose opioids for pain with peripheral levophed ordered for MAPs < 65 mmHg.
--- NOTE | 2020-03-19 23:14 | ECG_ITS ---
APPROVED REPORT Exam: Resting ECG HR:57 bpm ECG Measurements Heart Rate 57 AXES OK 170 P 37 QRSd 134 QRS -42 QT 500 T 16 QTc 486 Conclusion Sinus bradycardia Left axis deviation Right bundle branch block Possible Lateral infarct, age undetermined Abnormal ECG Electronically signed by : Amilcar Mueller, 03/22/2020 19:46:58
[2020-03-19 23:27] LABS: ABG Base Excess -4.3 mmol/L (-2.4-2.3); ABG HCO3 21.1 mmhg (22.0-26.0); ABG Oxygen Saturation 99 % (90-100); ABG PCO2 37.8 mmhg (35.0-45.0); ABG PH 7.36 mmol/L (7.35-7.45); ABG TCO2 22.2 mmhg (23-27); Allen's Test Patient Unable; Oxygen 100 %; PEEP 12; Tidal Volume 440; Vent Rate 18
[2020-03-19 23:28] LABS: Source Left Radial
--- NOTE | 2020-03-19 23:46 | PC.NURSE ---
PT IS LEAVING OFF THE FLOOR VIA STRETCHER WITH EMS STAFF & NSG STAFF FOR TRANSFER TO DIFFERENT FACILITY AT 2345.
--- NOTE | 2020-03-20 08:19 | PC.NURSE ---
late entry: Report called to [facility] by Mari champion RN. This RN rode in ambulance for transport to manage propofol and levophed drips. pt tolerated trip well. bp remained 116-122 sbp. HR 50-60. once peep valve applied to transport vent sats climbed to 92-93. pt bed assignement 10th floor [place] 2 room 223.
--- NOTE | 2020-03-20 08:32 | PC.NURSE ---
Late entry: following intubation Dr Serrano gave order for pt to be sedated with Propofol with rass -3 to -2. and Levophed titrate for map <63
[2020-03-20 08:48] VITALS: BP 124/70; PULSE 52; RESP 18; O2SAT 95
--- NOTE | 2020-03-20 08:52 | PC.NURSE ---
Propofol drip started at 10mcg at 2205 prop increased to 20 0 levo drip started at 2220 at 10mcg prop increased to 30 mcg 2229 prop increased to 45 0 levo decreased to 8 at 225
== END 2020-03-19 23:45 | disposition short-term general hospital (02) | DRG 208 ==
LOC: ER 20:28 → 2ND 03-17 01:19
PROVIDERS: Nurse Practitioner Family; Admitting Provider Emergency Medicine; Emergency Provider Emergency Medicine; PCP Emergency Medicine; Visit Provider Emergency Medicine
DX: U07.1 COVID-19 (principal); J96.21 Acute and chronic respiratory failure with hypoxia; J12.82 Pneumonia due to coronavirus disease 2019; I45.2 Bifascicular block; I50.32 Chronic diastolic (congestive) heart failure; N39.0 Urinary tract infection, site not specified; N17.9 Acute kidney failure, unspecified; Z68.42 Body mass index [BMI] 45.0-49.9, adult; E11.40 Type 2 diabetes mellitus with diabetic neuropathy, unspecified; I11.0 Hypertensive heart disease with heart failure; E66.01 Morbid (severe) obesity due to excess calories; I89.0 Lymphedema, not elsewhere classified; Z88.0 Allergy status to penicillin; Z88.1 Allergy status to other antibiotic agents; Z88.8 Allergy status to other drugs, medicaments and biological substances; Z79.82 Long term (current) use of aspirin; Z79.84 Long term (current) use of oral hypoglycemic drugs; Z79.899 Other long term (current) drug therapy
CPT/HCPCS: 31500; 94002; 71045; 71275; 80048; 80053; 80076; 81001; 82803; 82962; 83605; 84145; 84484; 85007; 85025; 85651; 86140; 87040; 87070; 87086; 87205; 87581; 87633; 87798; 93005; 94760; 94761; 96365; 96366; 96375; 99284; J0330; J0456; J2405; J2704; Q9967; U0003